=== PATIENT | female | born 1990 | race Caucasian/White ===

== ENCOUNTER 2017-09-12 17:50 | Emergency (ER) | END 2017-09-12 21:30 | disposition home or self-care (01) ==

== ENCOUNTER 2018-03-16 04:52 | Inpatient (IN) | payer BC, OTHER ==
[~2018-03-16] VITALS: Ht 170.2 cm; Wt 85.0 kg
[2018-03-16] VITALS (12 sets, daily range): BP systolic 96–108; BP diastolic 58–79; PULSE 48–65; RESP 16–21; Ht 170.2 cm; Wt 85.0 kg
[~2018-03-16 04:52] MED LIST: CYCL10TA7 PO; IBUP-1561 PO
--- NOTE | 2018-03-16 05:10 | ERD ---
ER Documentation Chief Complaint Chief Complaint HPI This is a very pleasant 27-year-old female who was accepted in transfer from an outside hospital for intractable seizure disorder. Patient has history of seizures. Patient is known to the hospitalist for admission. Due to capitation in bed limitations on the floor, patient came to the ER ROS All systems reviewed and are negative except as per history of present illness. Medications Home Meds Active Scripts Cyclobenzaprine Hcl* (Cyclobenzaprine Hcl*) 10 Mg Tablet, 10 MG PO TID, #30 TAB Prov:ASHOK KU PA-C 09/12/17 Ibuprofen* (Motrin*) 400 Mg Tab, 400 MG PO Q6H PRN for PAIN AND OR ELEVATED TEMP, #30 TAB Prov:ASHOK KU PA-C 09/12/17 Allergies Allergies: Coded Allergies: No Known Allergy (Unverified , 09/12/17) PMhx/Soc Hx Alcohol Use: No Hx Substance Use: No Hx Tobacco Use: No Physical Exam Physical Exam Const: No acute distress Head: Atraumatic Eyes: Normal Conjunctiva ENT: Normal External Ears, Nose and Mouth. Neck: Full range of motion. No meningismus. Resp: Clear to auscultation bilaterally Cardio: Regular rate and rhythm, no murmurs Abd: Soft, non tender, non distended. Normal bowel sounds Skin: No petechiae or rashes Back: No midline or flank tenderness Ext: No cyanosis, or edema Neur: Awake and alert Psych: Normal Mood and Affect Procedures/MDM Medical decision makin-year-old female transferred for intractable seizure disorder among other things. Patient will be admitted to hospitalist. Hospitalist made aware. Departure Diagnosis: Primary Impression: Seizure disorder Condition: SHELLEY Moore Mar 16, 2018 05:10
[2018-03-16] MEDS ORDERED: NACL 0.9% 3 ML SYG IV SCH (06:30)
[2018-03-16] MEDS ORDERED: LORAZEPAM 2 MG INJ IV PRN (06:30)
[2018-03-16] MEDS ORDERED: CLON-379 PO (07:35)
[2018-03-16] MEDS ORDERED: CLON0.5T14 PO (07:35)
[2018-03-16] MEDS: DEXTROSE 5%-0.45% NACL 1,000 ML IV SCH ×3 (07:51→22:47)
[2018-03-16] MEDS: LEVETIRACETAM IV 750 MG in DEXTROSE 5% 100 ML IVPB SCH ×2 (08:36→22:47)
[2018-03-16] MEDS ORDERED: LORAZEPAM 4 MG/ML VIAL IV PRN (13:20)
[2018-03-16] MEDS ORDERED: DIPHENHYDRAMINE 25 MG CAP PO PRN (15:00)
[2018-03-16] MEDS ORDERED: HYDROCODONE/APAP (5/325) TAB PO PRN (15:00)
[2018-03-16] MEDS ORDERED: LORAZEPAM 2 MG INJ IV ONE (15:00)
--- NOTE | 2018-03-16 15:42 | HP ---
Date/Time of Note Date/Time of Note DATE: 03/16/18 TIME: 14:30 Assessment/Plan VTE Prophylaxis Pharmacological prophylaxis: NA/contraindicated Pharm contraindication: bleeding Lines/Catheters IV [facility]from [facility] Saline Lock Urinary Cath still in place: No Assessment/Plan Assessment/Plan 1. acute to subacute left frontal hematoma 2. Hypertensive emergency secondary to meth use: Resolved 3. Chronic substance [methamphetamine] abuse 4. New onset seizures secondary to #1 Plan: ICU admits, neurosurgical recommendation, will need follow-up CT brain in 24 hours to ensure no increase in size, seizure prophylaxis with Keppra, neurology consultation, supportive care. Keep n.p.o. for now until neurosurgical clearance. Zoster status post counseling on the dangers of substance abuse, will have family welfare social work professor provide resources as well. Care time greater than 1 hour HPI/ROS Admit Date/Time Admit Date/Time Mar 16, 2018 at 04:57 Hx of Present Illness This is a 27-year-old female who has a long history of methamphetamine abuse and has intermittent episodes of sobriety who had a relapse yesterday after 9 months of sobriety. She was rushed to the outside emergency room admission because of seizures. Patient does not fully recall the details surrounding her admission. She however does not have any history of seizures. She has been told in the past that she has had elevated blood pressures due to methamphetamine use. An MRI that was done here however is concerning for acute to subacute left frontal hematoma compatibility secretly of methamphetamine use. She is being admitted to the intensive care unit for further management and neurosurgical review. Blood pressure is improved. . ROS 12 point review if systems was done and pertinent findings are as noted. PMH/Family/Social Past Medical History Medical History: no pertinent history Medications Current Medications Dextrose/Sodium Chloride 1,000 ml @ 75 mls/hr [id number] IV Last administered on 03/16/18at 07:51; Admin Dose 75 MLS/HR; Start 03/16/18 at 06:11 IV Flush (NS 3 ml) 3 ml PER PROTOCOL IV ; Start 03/16/18 at 06:30 Ondansetron HCl (Zofran Inj) 4 mg Q6H PRN IV NAUSEA AND/OR VOMITING; Start 03/16/18 at 06:30 Acetaminophen (Tylenol Tab) 650 mg Q6H PRN PO PAIN LEVEL 1-3 OR FEVER; Start 03/16/18 at 06:30 Levetiracetam 750 mg/Dextrose 107.5 ml @ 430 mls/hr Q12 IVPB Last administered on 03/16/18at 08:36; Admin Dose 430 MLS/HR; Start 03/16/18 at 09:00 Lorazepam (Ativan) 2 mg Q10M PRN IV Seizure Last administered on 03/16/18at 13:21; Admin Dose 2 MG; Start 03/16/18 at 13:20 Coded Allergies: No Known Allergy (Unverified , 03/25/18) Past Surgical History Past Surgical Hx: no surgical history Social History Smoking Status: Current every day smoker Drug Use: other (methamphetamine) Exam/Review of Systems Vital Signs Vitals Vital Signs Date Temp Pulse Resp B/P (MAP) Pulse Ox O2 O2 Flow FiO2 Time Delivery Rate 03/16/18 98.3 54 18 96/58 (71) 96 Room Air 12:27 Exam Constitutional: alert, oriented; No distress Head: normocephalic Eyes: No icteric ENMT: mucosa pink and moist Respiratory: clear to auscultation Cardiovascular: regular rate and rhythm; No murmurs/extra sounds Gastrointestinal: soft, non-tender, bowel sounds Extremities: No edema Neurological: nl mental status, nl speech, nl strength, DTR's symmetric, lethargic; No confused, No focal weakness, No numbness, No unresponsive DILLON JAIME Mar 16, 2018 14:40
[2018-03-16] MEDS ORDERED: LORAZEPAM 4 MG/ML VIAL IV SCH (15:46)
--- NOTE | 2018-03-16 18:50 | NUR ---
pt awake and alert, gave ativan x1 this afternoon and pt has been resting well since around 1400- able to wake pt when needed, pt is calm and alert with mother at bedside, updated pt and mother on POC, pt has seizure precautions and safety measures maintained, pt is waiting for neurologist to see her mother is also aware, pt denies pain at this time and aware of MRI results as well, pt also refused pictures of skin assessment but skin is intact, will cont to monitor
--- NOTE | 2018-03-16 18:59 | NUR ---
pt awake and alert but forgetful at times- pt was trying to get OOB and found pt on the edge of the bed,educated pt about fall risk, called Dr. Kan and notified pt was at the edge of the bed he stated that it was okay pt could be out of the bed with or without brace, pt gauze on back still intact no bleeding, pt has MOTOR ASSEMBLER and educated him about that, hemovac in place as well, bed alarms are on and call light is in reach. Addendum: 03/16/18 at 1943 by JENNI HOPE RN error- wrong note on patient
--- NOTE | 2018-03-16 21:52 | NUR ---
MRI NEW MRI ORDERED BY DR. BELTRAN, PT OFF UNIT FOR PROCEDURE AT 21:50 WITH BALANCE STAFF STAKER NURSE AND TRANSPORT. Addendum: 03/16/18 at 2334 by MACIEJ BEGUM RN PT RETURNED TO UNIT AROUND 22:45 AFTER REFUSING THE LAST HALF OF THE MRI TEST. 23:30 - DR. BELTRAN PAGED AND INFORMED THAT PT REFUSED. HE IS OK TO TRY AGAIN TOMORROW DURING THE DAY TIME. WILL CONTINUE TO MONITOR AND ASSESS.
[2018-03-16] MEDS: CHLORDIAZEPOXIDE 25 MG CAP PO SCH (22:48)
[2018-03-17] VITALS (23 sets, daily range): BP systolic 86–113; BP diastolic 50–90; PULSE 47–88; RESP 13–24
--- NOTE | 2018-03-17 01:47 | NUR ---
DIET DR. HARRINGTON CALLED DUE TO PT'S DESIRE TO EAT DUE TO HER BEING UPSET ABOUT SPENDING THE NIGHT IN ICU. PER DR. HARRINGTON, PT IS OK TO EAT SNACKS TONIGHT BUT MUST BE NPO AGAIN IN THE MORNING. WILL OFFER PT FOOD AND CONTINUE TO MONITOR.
--- NOTE | 2018-03-17 06:23 | NUR ---
EOSS: PATIENT REMAINED STABLE THROUGHOUT SHIFT; VITAL SIGNS CHARTED. NO ACUTE CARDIAC EVENTS NOTED. PT TOLERATING ROOM AIR WITH ADEQUATE OXYGENATION SATURATION >92%. PT REMAINS NPO. PT VOIDED ONCE LAST NIGHT PER TOILET. NO BM LAST NIGHT. SKIN CARE PROVIDED PER PROTOCOL. PT SELF TURNS Q1H. MRI TO BE ATTEMPTED AGAIN TODAY PER DR. BELTRAN. PRN NORCO GIVEN FOR COMPLAINTS OF MOUTH PAIN AND GENERALIZED SORENESS. REASSESSED EFFECTIVE. PT AFEBRILE AND COMFORTABLE, ALL NEEDS MET. SAFETY MEASURES IN PLACE. MOTHER WAS AT BEDSIDE LAST NIGHT AND UPDATED ON PLAN OF CARE. TWO CALLERS (MELY AND CHE) TRIED TO REACH PT VIA TELEPHONE WHILE PT WAS AT MRI. PT WAS GIVEN CALLERS NAMES AND NUMBERS BUT PT FELL BACK ASLEEP. WILL CONTINUE TO MONITOR AND ENDORSE CARE TO DAY SHIFT RN.
[2018-03-17] MEDS: CHLORDIAZEPOXIDE 25 MG CAP PO SCH ×3 (09:46→20:21)
--- NOTE | 2018-03-17 10:00 | NUR ---
SS NOTE: DRUG ABUSE RECEIVED ORDER TO SEE PT FOR METHAMPHETAMINE ABUSE. PT ADMITTED DUE TO SEIZURES. YURY MET WITH PT AT BEDSIDE. PT'S MOTHER AND S/O ALSO IN THE ROOM. YURY REQUESTED FOR VISITORS TO WAIT OUTSIDE DURING THE INTERVIEW. PT ALERT/ORIENTED X4. PT AGITATED AND UNCOOPERATIVE. STATED THAT SHE HATES SOCIAL WORKERS BECAUSE SOCIAL WORKERS HAVE MADE HER LIFE A "HELL". PT REPORTED THAT SHE HATES SOCIAL WORKERS BECAUSE THEY TOOK AWAY HER 2Y/O SON. STATED, "YOU ALL PRETEND THAT YOU'RE ANGELS BUT YOU'RE ALL LIARS". YURY EXPLAINED REASON FOR SW'S VISIT. EXPLAINED THAT HAS REQUESTED FOR YURY TO SPEAK WITH PT RE: HER DRUG USE AND TO PROVIDE RESOURCES. PT REPORTED THAT SHE HAS BEEN USING DRUGS "EVER SINCE I REMEMBER". STATED THAT SHE THINKS SHE WAS 10Y/O WHEN SHE STARTED TO USE DRUGS. REPORTED THAT SHE HAS USED "EVERY KIND OF DRUG". STATED THAT SHE DRINKS AND SMOKES WELL. REPORTED THAT SHE HAS BEEN IN REHAB ONCE AND WILL NEVER RETURN BACK THERE AGAIN. REPORTED THAT SHE WAS AT A HOTEL WITH HER SON WHEN SHE HAD HER SEIZURE. STATED THAT HER SON WAS GIVEN BACK TO HER, BUT SHE HAD USED METH AGAIN AND HAD A SEIZURE. STATED THAT SHE IS ANGRY BECAUSE [facility] HAS AGAIN TAKEN HER SON AWAY DUE TO THIS INCIDENT. REPORTED THAT HER S/O WAS DRIVING HER TO THE HOSPITAL WHEN SHE HAD ANOTHER SEIZURE. HER S/O STOPPED AND "FLAGGED DOWN A COPY WHO CALLED [employer] AND THEY TOOK MY SON". STATED THAT HER SON IS CURRENTLY PLACED WITH HER MOTHER. YURY ATTEMPTED TO EXPLAIN TO PT THAT THE CHILD WAS TAKEN AND PLACED IN A SAFE ENVIRONMENT. PT REFUSED TO LISTEN. YURY DISCUSSED [facility]. PT REFUSED TREATMENT. REFUSED RESOURCES. STATED THAT SHE DOES NOT NEED THEM. STATED THAT SHE IS NOT GONG TO PAY FOR TREATMENT AND IF NEEDED SHE WILL GO TO . YURY INFORMED PT THAT SHE HAS INSURANCE AND THE [facility] MIGHT BE ABLE TO TAKE HER INSURANCE. PT STATED THAT HER INSURANCE WAS BECAUSE SHE WAS GOING TO BE A SURROGATE FOR A COUPLE. STATED THAT SHE HAS TO NOW CALL AND TELL THEM THAT SHE CAN'T DO IT. PT TURNED AROUND AND DID NOT WANT TO CONTINUE WITH THE INTERVIEW. YURY MET WITH PT'S MOTHER, JOCELINE WHO CONFIRMED THAT [facility] HAS PLACED THE CHILD WITH HER. STATED THAT THIS IS THE SECOND TIME THAT THEY HAVE DONE THIS. STATED THAT PT'S VERY CLOSE FRIEND HELPS HER WITH STEEL RULE DIE MAKER APPRENTICE. PT'S MOTHER STATED THAT PT ALSO HAS A SEX ADDICTION AND CANNOT GO TO A CO-ED TREATMENT PROGRAM. STATED THAT SHE HAS BEEN CALLING [facility] WHERE PT CAN GO AFTER D/C IF PT IS WILLING. SW PROVIDED EMOTIONAL SUPPORT. SW WILL CONTINUE TO REMAIN AVAILABLE NEEDED.
[2018-03-17] MEDS: LEVETIRACETAM IV 750 MG in DEXTROSE 5% 100 ML IVPB SCH ×2 (10:06→20:29)
--- NOTE | 2018-03-17 10:33 | PN ---
Date/Time of Note Date/Time of Note DATE: 03/17/18 TIME: 10:17 Assessment/Plan VTE Prophylaxis Risk score (from Ns)>0 risk: 1 SCD applied (from Ns): Yes Pharmacological prophylaxis: NA/contraindicated Pharm contraindication: bleeding Lines/Catheters IV Catheter Type (from [facility] [place]): Peripheral IV Urinary Cath still in place: No Assessment/Plan Result Diagram: 03/17/18 0446 03/17/18 0446 Results 24hrs Laboratory Tests Test 03/17/18 04:46 White Blood Count 5.1 Red Blood Count 3.71 L Hemoglobin 11.1 L Hematocrit 32.9 L Mean Corpuscular Volume 88.7 Mean Corpuscular Hemoglobin 29.9 Mean Corpuscular Hemoglobin Concent 33.7 Red Cell Distribution Width 12.9 Platelet Count 320 Mean Platelet Volume 9.1 Immature Granulocytes % 0.000 L Neutrophils % 39.8 Lymphocytes % 49.1 Monocytes % 8.3 Eosinophils % 2.2 Basophils % 0.6 Nucleated Red Blood Cells % 0.0 Immature Granulocytes # 0.000 Neutrophils # 2.0 Lymphocytes # 2.5 Monocytes # 0.4 Eosinophils # 0.1 Basophils # 0.0 Nucleated Red Blood Cells # 0.0 Sodium Level 137 Potassium Level 3.1 L Chloride Level 105 Carbon Dioxide Level 26 Anion Gap 6 Blood Urea Nitrogen 3 L Creatinine 0.61 Est Glomerular Filtrat Rate mL/min > 60 Glucose Level 95 Hemoglobin A1c 5.0 Calcium Level 8.2 L Total Bilirubin 0.2 Direct Bilirubin 0.00 Indirect Bilirubin 0.2 Aspartate Amino Transf (AST/SGOT) 23 Alanine Aminotransferase (ALT/SGPT) 21 Alkaline Phosphatase 58 Total Protein 5.8 L Albumin 3.1 L Globulin 2.70 Albumin/Globulin Ratio 1.14 Triglycerides Level 91 Cholesterol Level 110 LDL Cholesterol, Calculated 47 HDL Cholesterol 45 Cholesterol/HDL Ratio 2.4 Thyroid Stimulating Hormone (TSH) 0.800 Subjective 24 Hr Interval Summary Free Text/Dictation S: no new complaints O:Constitutional: alert, oriented Head: atraumatic, normocephalic Neck: non-tender, supple Respiratory: clear to auscultation Cardiovascular: regular rate and rhythm Gastrointestinal: S/ NT / ND / +BS Extremities: no edema, good radial pulses assessment and plan: 27 yo F who presented wit 1st time seizures managed as follows: 1. acute to subacute left frontal hematoma 2. Hypertensive emergency secondary to meth use: Resolved 3. Chronic substance [methamphetamine] abuse 4. New onset seizures secondary to #1 Plan: patient needs MRI with IV contrast Await Neurosurgical official review and recommendations will also get neurology review Continue IV keppra for now Substance use cessation re-inforced Remain in ICU for now till definitive care plan Continue ICU supportive care CRITICAL CARE TIME: >35 mins Exam/Review of Systems Vital Signs Vitals Vital Signs Date Temp Pulse Resp B/P (MAP) Pulse Ox O2 O2 Flow FiO2 Time Delivery Rate 03/17/18 49 08:00 03/17/18 15 102/65 100 Room Air 06:00 (77) 03/17/18 97.8 04:00 Intake and Output 03/16/18 03/16/18 03/17/18 1515:00 23:00 07:00 IntakeIntake Total 100 ml 975 ml 632.5 ml BalanceBalance 100 ml 975 ml 632.5 ml Medications Medications Current Medications Dextrose/Sodium Chloride 1,000 ml @ 75 mls/hr [id number] IV Last administered on 03/16/18at 22:47; Admin Dose 75 MLS/HR; Start 03/16/18 at 06:11 IV Flush (NS 3 ml) 3 ml PER PROTOCOL IV ; Start 03/16/18 at 06:30 Ondansetron HCl (Zofran Inj) 4 mg Q6H PRN IV NAUSEA AND/OR VOMITING; Start 03/16/18 at 06:30 Acetaminophen (Tylenol Tab) 650 mg Q6H PRN PO PAIN LEVEL 1-3 OR FEVER; Start 03/16/18 at 06:30 Levetiracetam 750 mg/Dextrose 107.5 ml @ 430 mls/hr Q12 IVPB Last administered on 03/17/18at 10:06; Admin Dose 430 MLS/HR; Start 03/16/18 at 09:00 Lorazepam (Ativan) 2 mg Q10M PRN IV Seizure Last administered on 03/16/18at 13:21; Admin Dose 2 MG; Start 03/16/18 at 13:20 Acetaminophen/ Hydrocodone Bitart ([place] (5/325)) 1 tab Q6H PRN PO MODERATE PAIN LEVEL 4-6 Last administered on 03/16/18at 22:52; Admin Dose 1 TAB; Start 03/16/18 at 15:00 Diphenhydramine HCl (Benadryl) 25 mg Q6H PRN PO ITCHING; Start 03/16/18 at 15:00 Chlordiazepoxide (Librium) 25 mg TID PO Last administered on 03/17/18at 09:46; Admin Dose 25 MG; Start 03/16/18 at 21:00 DILLON JAIME Mar 17, 2018 10:33
--- NOTE | 2018-03-17 12:14 | CONS ---
Date/Time of Note Date/Time of Note DATE: 03/17/18 TIME: 12:03 Assessment/Plan Assessment/Plan Assessment/Plan Ms. 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 The best treatment for this is surgical resection. The patient understands the risks and benefits and elects to proceed. She should continue keppra 750 bid and can transfer to the floor today. We have ordered a repeat MRI with contrast that is compatible with neuronavigtation. Surgery has been schedule for Wednesday. Diagnoses: 1) Left frontal intraparenchymal hemorrhage 2) Cystic brain mass NOS Result Diagram: 03/17/18 0446 03/17/18 0446 Results 24hrs Laboratory Tests Test 03/17/18 04:46 White Blood Count 5.1 Red Blood Count 3.71 L Hemoglobin 11.1 L Hematocrit 32.9 L Mean Corpuscular Volume 88.7 Mean Corpuscular Hemoglobin 29.9 Mean Corpuscular Hemoglobin Concent 33.7 Red Cell Distribution Width 12.9 Platelet Count 320 Mean Platelet Volume 9.1 Immature Granulocytes % 0.000 L Neutrophils % 39.8 Lymphocytes % 49.1 Monocytes % 8.3 Eosinophils % 2.2 Basophils % 0.6 Nucleated Red Blood Cells % 0.0 Immature Granulocytes # 0.000 Neutrophils # 2.0 Lymphocytes # 2.5 Monocytes # 0.4 Eosinophils # 0.1 Basophils # 0.0 Nucleated Red Blood Cells # 0.0 Sodium Level 137 Potassium Level 3.1 L Chloride Level 105 Carbon Dioxide Level 26 Anion Gap 6 Blood Urea Nitrogen 3 L Creatinine 0.61 Est Glomerular Filtrat Rate mL/min > 60 Glucose Level 95 Hemoglobin A1c 5.0 Calcium Level 8.2 L Total Bilirubin 0.2 Direct Bilirubin 0.00 Indirect Bilirubin 0.2 Aspartate Amino Transf (AST/SGOT) 23 Alanine Aminotransferase (ALT/SGPT) 21 Alkaline Phosphatase 58 Total Protein 5.8 L Albumin 3.1 L Globulin 2.70 Albumin/Globulin Ratio 1.14 Triglycerides Level 91 Cholesterol Level 110 LDL Cholesterol, Calculated 47 HDL Cholesterol 45 Cholesterol/HDL Ratio 2.4 Thyroid Stimulating Hormone (TSH) 0.800 Consultation Date/Type/Reason Admit Date/Time Mar 16, 2018 at 04:57 Date of Consultation: Mar 17, 2018 Type of Consult Neurosurgery Reason for Consultation Seizure Requesting Provider: DILLON JAIME of Present Illness Ms. Nair is a 27 year old with a history of methamphetamine use who had 3 seizures on Wednesday night and was brought to the ER, where a cystic left frontal mass was identified She is otherwise healthy and has had no history of seizures. The seizures started in the right arm and progressed to visual symptoms and then generalized. She was started on keppra here. The patient denies headache, weakness, numbness or other neurologic symptoms. She describes anxiety, but request medications by name. Past Medical History Medical History: no pertinent history Medications Current Medications Dextrose/Sodium Chloride 1,000 ml @ 75 mls/hr [id number] IV Last administered on 03/16/18at 22:47; Admin Dose 75 MLS/HR; Start 03/16/18 at 06:11 IV Flush (NS 3 ml) 3 ml PER PROTOCOL IV ; Start 03/16/18 at 06:30 Ondansetron HCl (Zofran Inj) 4 mg Q6H PRN IV NAUSEA AND/OR VOMITING; Start 03/16/18 at 06:30 Acetaminophen (Tylenol Tab) 650 mg Q6H PRN PO PAIN LEVEL 1-3 OR FEVER; Start 03/16/18 at 06:30 Levetiracetam 750 mg/Dextrose 107.5 ml @ 430 mls/hr Q12 IVPB Last administered on 03/17/18at 10:06; Admin Dose 430 MLS/HR; Start 03/16/18 at 09:00 Lorazepam (Ativan) 2 mg Q10M PRN IV Seizure Last administered on 03/16/18at 13:21; Admin Dose 2 MG; Start 03/16/18 at 13:20 Acetaminophen/ Hydrocodone Bitart ([place] (5/325)) 1 tab Q6H PRN PO MODERATE PAIN LEVEL 4-6 Last administered on 03/16/18at 22:52; Admin Dose 1 TAB; Start 03/16/18 at 15:00 Diphenhydramine HCl (Benadryl) 25 mg Q6H PRN PO ITCHING; Start 03/16/18 at 15:00 Chlordiazepoxide (Librium) 25 mg TID PO Last administered on 03/17/18at 09:46; Admin Dose 25 MG; Start 03/16/18 at 21:00 Allergies: Coded Allergies: No Known Allergy (Unverified , 09/12/17) Social History Smoking Status: Current every day smoker Drug Use: other (methamphetamine) Exam/Review of Systems Vital Signs Vitals Vital Signs Date Temp Pulse Resp B/P (MAP) Pulse Ox O2 O2 Flow FiO2 Time Delivery Rate 03/17/18 69 17 103/53 100 Room Air 10:00 (70) 03/17/18 98.0 08:00 Intake and Output 03/16/18 03/16/18 03/17/18 1515:00 23:00 07:00 IntakeIntake Total 100 ml 975 ml 707.5 ml OutputOutput Total 0 ml BalanceBalance 100 ml 975 ml 707.5 ml Exam The patient is alert and oriented x3 Cranial nerves are grossly intact Full strength No numbness Medications Medications Current Medications Dextrose/Sodium Chloride 1,000 ml @ 75 mls/hr [id number] IV Last administered on 03/16/18at 22:47; Admin Dose 75 MLS/HR; Start 03/16/18 at 06:11 IV Flush (NS 3 ml) 3 ml PER PROTOCOL IV ; Start 03/16/18 at 06:30 Ondansetron HCl (Zofran Inj) 4 mg Q6H PRN IV NAUSEA AND/OR VOMITING; Start 03/16/18 at 06:30 Acetaminophen (Tylenol Tab) 650 mg Q6H PRN PO PAIN LEVEL 1-3 OR FEVER; Start 03/16/18 at 06:30 Levetiracetam 750 mg/Dextrose 107.5 ml @ 430 mls/hr Q12 IVPB Last administered on 03/17/18at 10:06; Admin Dose 430 MLS/HR; Start 03/16/18 at 09:00 Lorazepam (Ativan) 2 mg Q10M PRN IV Seizure Last administered on 03/16/18at 13:21; Admin Dose 2 MG; Start 03/16/18 at 13:20 Acetaminophen/ Hydrocodone Bitart ([place] (5/325)) 1 tab Q6H PRN PO MODERATE [place] N LEVEL 4-6 Last administered on 03/16/18at 22:52; Admin Dose 1 TAB; Start 03/16/18 at 15:00 Diphenhydramine HCl (Benadryl) 25 mg Q6H PRN PO ITCHING; Start 03/16/18 at 15:00 Chlordiazepoxide (Librium) 25 mg TID PO Last administered on 03/17/18at 09:46; Admin Dose 25 MG; Start 03/16/18 at 21:00 Imaging Imaging There is a 2.5cm mass in the left superior frontal gyrus. This mass has hemorrhagic and cystic components as well as a central core that appears hemorrhagic. DDx includes cavernous malformation vs. tumor. ANTWON HUERTA MD Mar 17, 2018 12:14
[2018-03-17] MEDS: DEXTROSE 5%-0.45% NACL 1,000 ML IV SCH (13:41)
--- NOTE | 2018-03-17 13:49 | CONS ---
Assessment/Plan Assessment/Plan Hospital Course A: 27 yo F with hx of methamphetamine abuse who p/w seizures...for which neurology is consulted. MRI brain is most notable for a frontal hemorrhagic lesion... which is the presumed underlying seizure precipitant. P: Await MRI brain with contrast for further characterization Add MRA Head Cont Keppra as scheduled for now Ativan IV PRN seizure > 5min or for cluster Maintain SBP <160 Avoid antiplatelets/anticoagulants Limit sedating medications where possible Other medical management per primary Will follow clinically Result Diagram: 03/17/18 0446 03/17/18 0446 Results 24hrs Laboratory Tests Test 03/17/18 04:46 White Blood Count 5.1 Red Blood Count 3.71 L Hemoglobin 11.1 L Hematocrit 32.9 L Mean Corpuscular Volume 88.7 Mean Corpuscular Hemoglobin 29.9 Mean Corpuscular Hemoglobin Concent 33.7 Red Cell Distribution Width 12.9 Platelet Count 320 Mean Platelet Volume 9.1 Immature Granulocytes % 0.000 L Neutrophils % 39.8 Lymphocytes % 49.1 Monocytes % 8.3 Eosinophils % 2.2 Basophils % 0.6 Nucleated Red Blood Cells % 0.0 Immature Granulocytes # 0.000 Neutrophils # 2.0 Lymphocytes # 2.5 Monocytes # 0.4 Eosinophils # 0.1 Basophils # 0.0 Nucleated Red Blood Cells # 0.0 Sodium Level 137 Potassium Level 3.1 L Chloride Level 105 Carbon Dioxide Level 26 Anion Gap 6 Blood Urea Nitrogen 3 L Creatinine 0.61 Est Glomerular Filtrat Rate mL/min > 60 Glucose Level 95 Hemoglobin A1c 5.0 Calcium Level 8.2 L Total Bilirubin 0.2 Direct Bilirubin 0.00 Indirect Bilirubin 0.2 Aspartate Amino Transf (AST/SGOT) 23 Alanine Aminotransferase (ALT/SGPT) 21 Alkaline Phosphatase 58 Total Protein 5.8 L Albumin 3.1 L Globulin 2.70 Albumin/Globulin Ratio 1.14 Triglycerides Level 91 Cholesterol Level 110 LDL Cholesterol, Calculated 47 HDL Cholesterol 45 Cholesterol/HDL Ratio 2.4 Thyroid Stimulating Hormone (TSH) 0.800 Consultation Date/Type/Reason Admit Date/Time Mar 16, 2018 at 04:57 Type of Consult Neurology Reason for Consultation seizures Requesting Provider: DILLON JAIME Date/Time of Note DATE: 03/17/18 TIME: 13:46 Hx of Present Illness This is a 27 yo F with hx of methamphetamine abuse who presented to the ED after having a witnessed seizure. History was obtained from chart review as pt is a limited historian at this time. The pt has c/o mild weakness, lethargy, and a sore tongue. Denies headache, d izziness, lightheadedness, confusion, vision or speech changes. It is elsewhere noted: Hx of Present Illness This is a 27-year-old female who has a long history of methamphetamine abuse and has intermittent episodes of sobriety who had a relapse yesterday after 9 months of sobriety. She was rushed to the outside emergency room admission because of seizures. Patient does not fully recall the details surrounding her admission. She however does not have any history of seizures. She has been told in the past that she has had elevated blood pressures due to methamphetamine use. An MRI that was done here however is concerning for acute to subacute left frontal hematoma compatibility secretly of methamphetamine use. She is being admitted to the intensive care unit for further management and neurosurgical review. Blood pressure is improved. . negative unless noted otherwise in HPI Exam/Review of Systems Vital Signs Vitals Vital Signs Date Temp Pulse Resp B/P (MAP) Pulse Ox O2 O2 Flow FiO2 Time Delivery Rate 03/17/18 66 12:00 03/17/18 17 103/53 100 Room Air 10:00 (70) 03/17/18 98.0 08:00 Intake and Output 03/16/18 03/16/18 03/17/18 1515:00 23:00 07:00 IntakeIntake Total 100 ml 975 ml 707.5 ml OutputOutput Total 0 ml BalanceBalance 100 ml 975 ml 707.5 ml Exam PE: Gen Appearance: Withdrawn but cooperative. No Apparent Distress HEENT: Normocephalic Cardiovascular: Regular rate Abdomen: Soft Extremities: Dry NE: The patient was asleep though easily arousable to voice. Fully oriented. Langua ge was normal. Fund of knowledge was normal. Pupils were equal and reactive to light. There was no afferent pupillary defect. Visual blank were normal. Funduscopic examination was limited. Extra-ocular movements were full. Ptosis was absent. There was no nystagmus. Facial sensation was normal. Face was symmetric with normal strength. Hearing was intact. Palate movements were normal. Neck strength was normal. There was normal tongue bulk and speed of movement. Tone was normal. Muscle bulk was normal. I did not see fasciculations. Arms and legs were strong to confrontation. No arm or leg drift noted. Vibration sensation was normal. Temperature and pinprick sensation was normal. Rapid alternating movements were normal. There was no dysmetria. There was no intention tremor. Gait was deferred due to bedrest. Arm and leg reflexes were 2+ and symmetric. Trivedi's sign was absent. Plantar responses were flexor. Medications Medications Current Medications Dextrose/Sodium Chloride 1,000 ml @ 75 mls/hr [id number] IV Last administered on 03/17/18 13:41; Admin Dose 75 MLS/HR; Start 03/16/18 at 06:11 IV Flush (NS 3 ml) 3 ml PER PROTOCOL IV ; Start 03/16/18 at 06:30 Ondansetron HCl (Zofran Inj) 4 mg Q6H PRN IV NAUSEA AND/OR VOMITING; Start 03/16/18 at 06:30 Acetaminophen (Tylenol Tab) 650 mg Q6H PRN PO PAIN LEVEL 1-3 OR FEVER; Start 03/16/18 at 06:30 Levetiracetam 750 mg/Dextrose 107.5 ml @ 430 mls/hr Q12 IVPB Last administered on 03/17/18at 10:06; Admin Dose 430 MLS/HR; Start 03/16/18 at 09:00 Lorazepam (Ativan) 2 mg Q10M PRN IV Seizure Last administered on 03/16/18 13:21; Admin Dose 2 MG; Start 03/16/18 at 13:20 Acetaminophen/ Hydrocodone Bitart ([place] (5/325)) 1 tab Q6H PRN PO MODERATE PAIN LEVEL 4-6 Last administered on 03/16/18at 22:52; Admin Dose 1 TAB; Start 03/16/18 at 15:00 Diphenhydramine HCl (Benadryl) 25 mg Q6H PRN PO ITCHING; Start 03/16/18 at 15:00 Chlordiazepoxide (Librium) 25 mg TID PO Last administered on 03/17/18 13:41; Admin Dose 25 MG; Start 03/16/18 at 21:00 Past Medical History reviewed Medical History: no pertinent history Medications Current Medications Dextrose/Sodium Chloride 1,000 ml @ 75 mls/hr [id number] IV Last administered on 03/17/18at 13:41; Admin Dose 75 MLS/HR; Start 03/16/18 at 06:11 IV Flush (NS 3 ml) 3 ml PER PROTOCOL IV ; Start 03/16/18 at 06:30 Ondansetron HCl (Zofran Inj) 4 mg Q6H PRN IV NAUSEA AND/OR VOMITING; Start 03/16/18 at 06:30 Acetaminophen (Tylenol Tab) 650 mg Q6H PRN PO PAIN LEVEL 1-3 OR FEVER; Start 03/16/18 at 06:30 Levetiracetam 750 mg/Dextrose 107.5 ml @ 430 mls/hr Q12 IVPB Last administered on 03/17/18at 10:06; Admin Dose 430 MLS/HR; Start 03/16/18 at 09:00 Lorazepam (Ativan) 2 mg Q10M PRN IV Seizure Last administered on 03/16/18at 13:21; Admin Dose 2 MG; Start 03/16/18 at 13:20 Acetaminophen/ Hydrocodone Bitart ([place] (5/325)) 1 tab Q6H PRN PO MODERATE PAIN LEVEL 4-6 Last administered on 03/16/18at 22:52; Admin Dose 1 TAB; Start 03/16/18 at 15:00 Diphenhydramine HCl (Benadryl) 25 mg Q6H PRN PO ITCHING; Start 03/16/18 at 15:00 Chlordiazepoxide (Librium) 25 mg TID PO Last administered on 03/17/18at 13:41; Admin Dose 25 MG; Start 03/16/18 at 21:00 Allergies: Coded Allergies: No Known Allergy (Unverified , 09/12/17) Past Surgical History reviewed Social History reviewed Smoking Status: Current every day smoker Drug Use: other (methamphetamine) GABBY WILDER NP Mar 17, 2018 13:49 FIONA LANDIS Mar 18, 2018 06:06
--- NOTE | 2018-03-17 18:38 | NUR ---
EOSS BP stable, SR-SB, taking p.o. diet well, u.o. adequate, ambulates to toilet, gait steady, no episode of seizure, tolerated MRI/MRA, Dr Murphy spoke with patient and pt's mother re: planned surgery, patient signed consent.
[2018-03-17] MEDS: ACETAMINOPHEN 325 MG TAB PO PRN (20:21)
--- NOTE | 2018-03-17 23:20 | NUR ---
Hand-off report received from DI[facility] BLENDER Tej, clarified if MD aware of patient's latest K+ result from this am and if there are any orders for repletion. IC RN to coordinate with Hospitalist prior to transfer to Med-Surg unit.
[2018-03-17] MEDS ORDERED: POTASSIUM CHLORIDE 50 ML IVPB ONE (23:30)
--- NOTE | 2018-03-17 23:55 | NUR ---
Patient arrived in 4W from ICU via wheelchair with diagnosis of seizures. Oriented to room/unit, call mckinnon paced within reach and side rails x2 raised for safety. Bed alarm ensured to be ON. RN discussed intervention of placing padded side rails-refused by patient but consented to have 2 pillow placed on each side of her bed. Also refused skin assessment on bony prominences such as sacrococcyx and B/L heels and verbalized understanding of RN explanation for measures taken to maintain skin integrity, prevention of skin breakdown and pressure sores and prevention of injury/seizures. Verbalized she does not have any pressure ulcers and that her last seizure episode was because she was high on methamphetamine use before she got admitted in the hospital. trumpet teacher made aware. Needs assisted, will continue to monitor overnight.
[2018-03-18] VITALS: BP 102/60; PULSE 55; RESP 20
[2018-03-18] MEDS ORDERED: POTASSIUM CHLORIDE 50 ML IVPB ONE ×2 (00:30→01:30)
--- NOTE | 2018-03-18 05:49 | NUR ---
RN EOSS NOTES: Patient mostly asleep this shift-easily awakened for toileting needs. No seizure events noted. Dr. Ni notified patient only tolerated 1 bag infusion of Potassium 10meQ IV and barely tolerated 2nd bag and has refused any further K+ IV infusion due to "burning" side effects. RN also clarified if he wants to order any K+ PO supplements and order am labs as well including BMP. Dr Ni with telephone ([facility]) order made for K-dur 40meQ PO x 1 dose now. No further orders. Will ask incoming day RN to ff-up once more with day Hospitalist for clarification if am labs can be ordered to include patient's latest K+ level today. Needs assisted.
[2018-03-18] MEDS ORDERED: POTASSIUM CHLORIDE (SR) 10 MEQ TAB PO ONE (06:00)
--- NOTE | 2018-03-18 06:56 | PN ---
Date/Time of Note Date/Time of Note DATE: 03/18/18 TIME: 06:54 Assessment/Plan VTE Prophylaxis Risk score (from Nsg)>0 risk: 0 SCD applied (from Ns): Yes Pharmacological prophylaxis: NA/contraindicated Pharm contraindication: bleeding Lines/Catheters IV Catheter Type (from Nrsg): Saline Lock Urinary Cath still in place: No Assessment/Plan Result Diagram: 03/17/18 0446 03/17/186 Subjective 24 Hr Interval Summary Free Text/Dictation S: no new complaints O:Constitutional: alert, oriented Head: atraumatic, normocephalic Neck: non-tender, supple Respiratory: clear to auscultation Cardiovascular: regular rate and rhythm Gastrointestinal: S/ NT / ND / +BS Extremities: no edema, good radial pulses assessment and plan: 27 yo F who presented wit 1st time seizures managed as follows: 1. acute to subacute left frontal hematoma 2. Hypertensive emergency secondary to meth use: Resolved 3. Chronic substance [methamphetamine] abuse 4. New onset seizures secondary to #1 Plan: Continue IV keppra , neurology consult obtained, f/u recs Continue seizure precautions MRI w contrast and MRA findings noted, await Neurosurgical final recs. Sx tentatively scheduled for Wednesday Substance use cessation re-inforced Further interventions per clinical course Exam/Review of Systems Vital Signs Vitals Vital Signs Date Temp Pulse Resp B/P (MAP) Pulse Ox O2 O2 Flow FiO2 Time Delivery Rate 03/18/18 98.5 55 20 102/60 98 Room Air 00:00 (74) Intake and Output 03/17/18 03/17/18 03/18/18 1515:00 23:00 07:00 IntakeIntake Total 1512.5 ml 867.5 ml 480 ml OutputOutput Total 1300 ml 300 ml BalanceBalance 212.5 ml 567.5 ml 480 ml Medications Medications Current Medications IV Flush (NS 3 ml) 3 ml PER PROTOCOL IV ; Start 03/16/18 at 06:30 Ondansetron HCl (Zofran Inj) 4 mg Q6H PRN IV NAUSEA AND/OR VOMITING; Start 03/16/18 at 06:30 Acetaminophen (Tylenol Tab) 650 mg Q6H PRN PO PAIN LEVEL 1-3 OR FEVER Last administered on 03/17/18at 20:21; Admin Dose 650 MG; Start 03/16/18 at 06:30 Levetiracetam 750 mg/Dextrose 107.5 ml @ 430 mls/hr Q12 IVPB Last administered on 03/17/18at 20:29; Admin Dose 430 MLS/HR; Start 03/16/18 at 09:00 Lorazepam (Ativan) 2 mg Q10M PRN IV Seizure Last administered on 03/16/18at 13:21; Admin Dose 2 MG; Start 03/16/18 at 13:20 Diphenhydramine HCl (Benadryl) 25 mg Q6H PRN PO ITCHING; Start 03/16/18 at 15:00 Chlordiazepoxide (Librium) 25 mg TID PO Last administered on 03/17/18at 20:21; Admin Dose 25 MG; Start 03/16/18 at 21:00 DILLON JAIME Mar 18, 2018 06:56
[2018-03-18 08:42] VITALS: BP 109/68; PULSE 52; RESP 18
[2018-03-18] MEDS: CHLORDIAZEPOXIDE 25 MG CAP PO SCH ×3 (09:42→21:28)
[2018-03-18] MEDS: LEVETIRACETAM IV 750 MG in DEXTROSE 5% 100 ML IVPB SCH ×2 (09:42→21:26)
--- NOTE | 2018-03-18 16:00 | NUR ---
[employer] CONSULTANT CAME TO THE FLOOR AND MADE AWARE THAT PATIENT AND ALSO PATIENT'S MOM WANTS TO TALK TO HIM IF HE CAN GIVE A CALL TO THE MOM BUT HE SAID THAT HE WILL ENDORSE TO HIS COLLEAG[employer] FOR TOMORROW CAUSE HE IS REALLY VERY BUSY .
--- NOTE | 2018-03-18 16:06 | CONS ---
Assessment/Plan Assessment/Plan Hospital Course A: 27 yo F with hx of methamphetamine abuse who p/w seizures...for which neurology is consulted. MRI brain is most notable for a frontal hemorrhagic lesion... which is the presumed underlying seizure precipitant. Repeat MRI w/ contrast is stable. MRA H/N is unrevealing.. P: Cont Keppra as scheduled for now Ativan IV PRN seizure > 5min or for cluster Maintain SBP <160 Avoid antiplatelets/anticoagulants Limit sedating medications where possible Other medical management per primary Will follow clinically Result Diagram: 03/17/18 0446 03/17/18 0446 Consultation Date/Type/Reason Admit Date/Time Mar 16, 2018 at 04:57 Type of Consult Neurology Reason for Consultation seizures Requesting Provider: DILLON JAIME Date/Time of Note DATE: 03/18/18 TIME: 16:05 24 HR Interval Summary Free Text/Dictation Continues medsurg monitoring. No acute events or pt complaints reported at this time. Exam Vital Signs Vitals Vital Signs Date Temp Pulse Resp B/P (MAP) Pulse Ox O2 O2 Flow FiO2 Time Delivery Rate 03/18/18 97.5 52 18 109/68 96 08:42 (82) 03/18/18 Room Air 00:00 Intake and Output 03/17/18 03/17/18 03/18/18 1515:00 23:00 07:00 IntakeIntake Total 1512.5 ml 867.5 ml 480 ml OutputOutput Total 1300 ml 300 ml BalanceBalance 212.5 ml 567.5 ml 480 ml Exam PE: Gen Appearance: Withdrawn but cooperative. No Apparent Distress HEENT: Normocephalic Cardiovascular: Regular rate Abdomen: Soft Extremities: Dry NE: The patient was asleep though easily arousable to voice. Fully oriented. Language was normal. Fund of knowledge was normal. Pupils were equal and reactive to light. There was no afferent pupillary defect. Visual blank were normal. Funduscopic examination was limited. Extra-ocular movements were full. Ptosis was absent. There was no nystagmus. Facial sensation was normal. Face was symmetric with normal strength. Hearing was intact. Palate movements were normal. Neck strength was normal. There was normal tongue bulk and speed of movement. Tone was normal. Muscle bulk was normal. I did not see fasciculations. Arms and legs were strong to confrontation. No arm or leg drift noted. Vibration sensation was normal. Temperature and pinprick sensation was normal. Rapid alternating movements were normal. There was no dysmetria. There was no intention tremor. Gait was deferred due to bedrest. Arm and leg reflexes were 2+ and symmetric. Trivedi's sign was absent. Plantar responses were flexor. GABBY WILDER NP Mar 18, 2018 16:06 FIONA LANDIS Mar 19, 2018 07:52
--- NOTE | 2018-03-18 17:31 | NUR ---
pATIENT WANTS HER TO RESUME HER KLONOPIN 0.5 MG BID, MESSAGED DR JAIME THRU [employer], WAITING FOR HER RESPONSE
--- NOTE | 2018-03-18 18:30 | NUR ---
EOSS: Patient with no seizure activity noted during the shift, on IV keppra but patient cc/o pain on IV site eventhough it was just changed, with good blood return and wanted to decrease the rate, ran for an hour this morning. Slept most of the time. farmworker field crop to see patient tomorrow as communicated by Silvino case management social worker. Vitals stable. Messaged left to Dr Wisdom for klonopin cause patient wants to resume.
[2018-03-18 20:03] VITALS: BP 133/71; PULSE 88; RESP 20
[2018-03-18] MEDS ORDERED: clonAZEPAM 0.5 MG TAB PO ONE (21:00)
--- NOTE | 2018-03-18 21:23 | NUR ---
Patient has initially refused for her bed alarm (shelter monitor and nursing puttying and calking supervisor made aware) to be turned on, but eventually consented to comply with safety precautions discussed and implemented by RN. Reiterated side effects of her medications including drug interactions which heightens her fall risk. Continues to refuse padded side rails but agreed to have pillows placed on the sides of her bed, seizure precautions enforced as well.
[2018-03-19 02:14] VITALS: BP 102/52; PULSE 52; RESP 18
[2018-03-19 08:55] VITALS: BP 123/81; PULSE 76; RESP 18
[2018-03-19] MEDS: CHLORDIAZEPOXIDE 25 MG CAP PO SCH ×2 (08:57→12:59)
[2018-03-19] MEDS: LEVETIRACETAM IV 750 MG in DEXTROSE 5% 100 ML IVPB SCH ×2 (09:24→20:47)
--- NOTE | 2018-03-19 09:54 | PN ---
Date/Time of Note Date/Time of Note DATE: 03/19/18 TIME: 09:41 Assessment/Plan VTE Prophylaxis Risk score (from Ns)>0 risk: 0 SCD applied (from Ns): Yes SCD contraindicated: low risk/ambulating Pharmacological prophylaxis: heparin Lines/Catheters IV Catheter Type (from Nrs): Peripheral IV Urinary Cath still in place: No Assessment/Plan Problems: (1) Intraparenchymal hemorrhage of brain Status: Acute Comment: She is scheduled for neurosurgery in the next 48 hours. At this time she is medically stable to proceed forward. (2) Seizure disorder Status: Acute Comment: On Keppra at this time (3) Acute hypokalemia Status: Resolved Comment: Resolved (4) Tobacco abuse Status: Chronic Comment: Not smoking while here in the hospital (5) Methamphetamine abuse Status: Chronic Comment: She has poor insight into the situation and choices she is made. I suspect an underlying personality disorder such as borderline personality is a possibility Result Diagram: 03/19/18 0429 03/19/18 0429 Results 24hrs Laboratory Tests Test 03/19/18 04:29 White Blood Count 6.0 Red Blood Count 4.14 L Hemoglobin 12.4 Hematocrit 36.9 L Mean Corpuscular Volume 89.1 Mean Corpuscular Hemoglobin 30.0 Mean Corpuscular Hemoglobin Concent 33.6 Red Cell Distribution Width 12.7 Platelet Count 339 Mean Platelet Volume 9.1 Immature Granulocytes % 0.300 Neutrophils % 38.9 L Lymphocytes % 49.8 Monocytes % 8.0 Eosinophils % 2.5 Basophils % 0.5 Nucleated Red Blood Cells % 0.0 Immature Granulocytes # 0.020 Neutrophils # 2.3 Lymphocytes # 3.0 H Monocytes # 0.5 Eosinophils # 0.2 Basophils # 0.0 Nucleated Red Blood Cells # 0.0 Prothrombin Time 12.4 Prothrombin Time Ratio 1.0 INR International Normalized Ratio 0.91 Activated Partial Thromboplast Time 26.4 Sodium Level 139 Potassium Level 3.7 Chloride Level 102 Carbon Dioxide Level 31 Anion Gap 6 Blood Urea Nitrogen 12 # Creatinine 0.72 Est Glomerular Filtrat Rate mL/min > 60 Glucose Level 94 Calcium Level 8.7 Subjective 24 Hr Interval Summary Free Text/Dictation Patient reports no symptoms at this time. Constitutional: no complaints ENT: no complaints Respiratory: no complaints Cardiovascular: no complaints Gastrointestinal: no complaints Genitourinary: no complaints Exam/Review of Systems Vital Signs Vitals Vital Signs Date Temp Pulse Resp B/P (MAP) Pulse Ox O2 O2 Flow FiO2 Time Delivery Rate 03/19/18 98.0 76 18 123/81 100 Room Air 08:55 (95) Intake and Output 03/18/18 03/18/18 03/19/18 1515:00 23:00 07:00 IntakeIntake Total 507.5 ml 587.5 ml 920 ml BalanceBalance 507.5 ml 587.5 ml 920 ml Exam Constitutional: alert, oriented Psych: other (Patient states that she has no fear whatsoever about going in for surgery on the brain on Wednesday) Neck: supple, non-tender Respiratory: clear to auscultation, normal air movement Neurological: other (Affect does not match situation) Medications Medications Current Medications IV Flush (NS 3 ml) 3 ml PER PROTOCOL IV ; Start 03/16/18 at 06:30 Ondansetron HCl (Zofran Inj) 4 mg Q6H PRN IV NAUSEA AND/OR VOMITING; Start 03/16/18 at 06:30 Acetaminophen (Tylenol Tab) 650 mg Q6H PRN PO PAIN LEVEL 1-3 OR FEVER Last administered on 03/17/18at 20:21; Admin Dose 650 MG; Start 03/16/18 at 06:30 Levetiracetam 750 mg/Dextrose 107.5 ml @ 430 mls/hr Q12 IVPB Last administered on 03/19/18at 09:24; Admin Dose 430 MLS/HR; Start 03/16/18 at 09:00 Diphenhydramine HCl (Benadryl) 25 mg Q6H PRN PO ITCHING; Start 03/16/18 at 15:00 Chlordiazepoxide (Librium) 25 mg TID PO Last administered on 03/19/18at 08:57; Admin Dose 25 MG; Start 03/16/18 at 21:00; Stop 03/19/18 at 20:59 Lorazepam (Ativan) 2 mg Q2H PRN IV Seizure; Start 03/18/18 at 07:00 ELOY NGUYEN MD Mar 19, 2018 09:51
[2018-03-19] MEDS: ACETAMINOPHEN 325 MG TAB PO PRN (11:11)
--- NOTE | 2018-03-19 15:27 | NUR ---
YURY Note: Referral received stating patient/mother requested to f/u with YURY regarding child custody of patient. Met with patient at bedside. Pt verbalized that she did not request to speak with SW, but her mother may have. Patient gave verbal consent for this com writer to reach her mother via phone as she was not at bedside ([phone]). Spoke with patients mother via phone as she was not at bedside. Mother states that she has custody of patients son and that they have a court hearing on Wednesday. The court is also requesting that the patient present at the court hearing. However, per mother the patient is schedule to have surgery at [facility] on Wednesday and will not be able to attend Tuesdays court hearing. Family asking that a letter to the court be written from the hospital explaining patients absence. YURY informed patients mother , that due to hospital policy SW is unable to draft the letter. This com writer will speak with the medical staff regarding patient/family request. Spoke with bedside RN, RN to inform MD of patient/family request for letter.
--- NOTE | 2018-03-19 18:16 | NUR ---
EOSS: Patient with no episode of seizure during the shift, vitals stable, no c/o pain. With episodes of refusing bed alarm, though risk and benefits explained to patient but non compliant, stated" I don't need it" On IV keppra as ordered. Kept comfortable. Instructed to call for help if needed. Needs attended.
[2018-03-19 19:52] VITALS: BP 122/60; PULSE 65; RESP 20
[2018-03-19] MEDS ORDERED: clonAZEPAM 0.5 MG TAB PO ONE (22:40)
[2018-03-20 03:07] VITALS: BP 125/72; PULSE 66; RESP 20
--- NOTE | 2018-03-20 05:47 | NUR ---
RN EOSS NOTES: Patient visited by her family and significant other last night but mostly slept throughout shift after they have left. Provided with requested snacks last night and hourly rounding enforced to assist with needs and ensure safety. Compliant with nursing staff intervention in activation of bed alarm and calls for staff assistance for OOB activities. No fall nor seizure episodes noted this shift. No acute changes in LOC and v/S have been stable overnight. Anticipating surgery on Wednesday. Will continue to monitor and assist with needs.
[2018-03-20 07:43] VITALS: BP 102/66; PULSE 71; RESP 17
--- NOTE | 2018-03-20 08:15 | NUR ---
SWer submitted a letter to the DMV regarding pt's recent seizure requesting an evauation to determine if her driving privilege should be suspended/revoked as she might not be safe to operate a vehicle. CM aware, SWer to remain available for f/u and assistance as needed.
--- NOTE | 2018-03-20 08:30 | CONS ---
Assessment/Plan Assessment/Plan Hospital Course A: 27 yo F with hx of methamphetamine abuse who p/w seizures...for which neurology is consulted. MRI brain was most notable for a frontal hemorrhagic lesion... which is the presumed underlying seizure focus Repeat MRI w/ contrast was stable from prior. MRA H/N was unrevealing.. Planned for excisional Bx on 03/21.. P: Await neurosurgical Bx.. Cont Keppra as scheduled for now Ativan IV PRN seizure > 5min or for cluster Maintain SBP <160 Avoid antiplatelets/anticoagulants in the short term Limit sedating medications where possible Other medical management per primary Will follow clinically Result Diagram: 03/19/18 0429 03/19/18 0429 Results 24hrs Laboratory Tests Test 03/19/18 11:37 Rapid Plasma Reagin NONREACTIVE Hepatitis B Surface Antigen NEGATIVE Hepatitis C Antibody NEGATIVE Consultation Date/Type/Reason Admit Date/Time Mar 16, 2018 at 04:57 Type of Consult Neurology Reason for Consultation seizure Requesting Provider: DILLON JAIME Date/Time of Note DATE: 03/20/18 TIME: 08:29 Exam Vital Signs Vitals Vital Signs Date Temp Pulse Resp B/P (MAP) Pulse Ox O2 O2 Flow FiO2 Time Delivery Rate 03/20/18 98.0 71 17 102/66 100 Room Air 07:43 (78) Intake and Output 03/19/18 03/19/18 03/20/18 1515:00 23:00 07:00 IntakeIntake Total 307.5 ml 1227.5 ml 740 ml BalanceBalance 307.5 ml 1227.5 ml 740 ml Exam PE: Gen Appearance: No Apparent Distress HEENT: Normocephalic Cardiovascular: Regular rate Lungs: Clear bilaterally Abdomen: Soft Extremities: Dry NE: The patient was alert and oriented, able to spell WORLD backwards, and able to recall all three words after a five minute delay. Language was normal. Fund of knowledge was normal. Pupils were equal and reactive to light. There was no afferent pupillary defect. Visual blank were normal. Funduscopic examination showed sharp disc margins and spontaneous venous pulsations. Extra-ocular movements were full. Ptosis was absent. There was no nystagmus. Facial sensation was normal. Face was symmetric with normal strength. Hearing was intact. Palate movements were normal. Neck strength was normal. There was normal tongue bulk and speed of movement. Tone was normal. Muscle bulk was normal. I did not see fasciculations. Arms and legs were strong. Vibration sensation was normal. Temperature and pinprick sensation was normal. Rapid alternating movements were normal. There was no dysmetria. There was no intention tremor. Gait was normat. Arm and leg reflexes were 2+ and symmetric. Trivedi's sign was absent. Plantar responses were flexor. FIONA LANDIS Mar 20, 2018 08:30
[2018-03-20] MEDS: LEVETIRACETAM IV 750 MG in DEXTROSE 5% 100 ML IVPB SCH ×2 (09:45→20:39)
--- NOTE | 2018-03-20 10:59 | PN ---
Date/Time of Note Date/Time of Note DATE: 03/20/18 TIME: 10:55 Assessment/Plan VTE Prophylaxis Risk score (from Ns)>0 risk: 0 SCD applied (from Nsg): Yes Pharmacological prophylaxis: NA/contraindicated Pharm contraindication: low risk/ambulating Lines/Catheters IV Catheter Type (from Nrsg): Saline Lock Urinary Cath still in place: No Assessment/Plan Assessment/Plan HD4 seizures with left frontal hemorrhagic mass. For surgery tomorrow. Discussed risks and benefits of surgery and she understands and elects to proceed. - NPO after midnight - type and screen Result Diagram: 03/19/1842803/19/18428 Results 24hrs Laboratory Tests Test 03/19/18 11:37 Rapid Plasma Reagin NONREACTIVE Hepatitis B Surface Antigen NEGATIVE Hepatitis C Antibody NEGATIVE Subjective 24 Hr Interval Summary Free Text/Dictation Patient with L frontal hemorrhagic mass and seizure. No further seizures. On Keppra Exam/Review of Systems Vital Signs Vitals Vital Signs Date Temp Pulse Resp B/P (MAP) Pulse Ox O2 O2 Flow FiO2 Time Delivery Rate 03/20/18 98.0 71 17 102/66 100 Room Air 07:43 (78) Intake and Output 03/19/18 03/19/18 03/20/18 1414:59 22:59 06:59 IntakeIntake Total 307.5 ml 1227.5 ml 740 ml BalanceBalance 307.5 ml 1227.5 ml 740 ml Exam Alert and oriented x3 5/5 no drift Medications Medications Current Medications IV Flush (NS 3 ml) 3 ml PER PROTOCOL IV ; Start 03/16/18 at 06:30 Ondansetron HCl (Zofran Inj) 4 mg Q6H PRN IV NAUSEA AND/OR VOMITING; Start 03/16/18 at 06:30 Acetaminophen (Tylenol Tab) 650 mg Q6H PRN PO PAIN LEVEL 1-3 OR FEVER Last administered on 03/19/18at 11:11; Admin Dose 650 MG; Start 03/16/18 at 06:30 Levetiracetam 750 mg/Dextrose 107.5 ml @ 430 mls/hr Q12 IVPB Last administered on 03/20/18at 09:45; Admin Dose 430 MLS/HR; Start 03/16/18 at 09:00 Diphenhydramine HCl (Benadryl) 25 mg Q6H PRN PO ITCHING; Start 03/16/18 at 15:00 Lorazepam (Ativan) 2 mg Q2H PRN IV Seizure; Start 03/18/18 at 07:00 Imaging Imaging MRI with contrast does not demonstrate any enhancement. 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 ANTWON HUERTA MD Mar 20, 2018 10:59
--- NOTE | 2018-03-20 11:00 | QN ---
Documentation Comment March 20, 2018 To Whom It May Concern Re: Maya Nair date of 1990 Dear Sirs: Ms. Nair is a 27-year-old female who was admitted to [facility] March 16 2018. In the course of her evaluation she has been found to have an indication for a neurosurgical procedure which she will be receiving on the morning of March 21, 2018. Assuming everything goes well as our anticipation she will be able to be discharged from the hospital March 24, 2018 approximately. Please keep the states in mind in case this interferes with any other scheduled appearances or meetings that she is supposed to attend. Respectfully ELOY Pepper MD, MD Mar 20, 2018 11:00
--- NOTE | 2018-03-20 11:04 | PN ---
Date/Time of Note Date/Time of Note DATE: 03/20/18 TIME: 11:01 Assessment/Plan VTE Prophylaxis Risk score (from Ns)>0 risk: 0 SCD applied (from Ns): Yes SCD contraindicated: low risk/ambulating Pharmacological prophylaxis: NA/contraindicated Pharm contraindication: bleeding Lines/Catheters IV [facility]ter [facility]from [facility] Saline Lock Urinary Cath still in place: No Assessment/Plan Problems: (1) Intraparenchymal hemorrhage of brain Status: Acute Comment: For neurosurgical procedure in the morning to the definitively identify what this is an resolve the issue hope fully (2) Seizure disorder Status: Acute Comment: Presently without evidence of seizures while on medication treatment. (3) Acute hypokalemia Status: Resolved Comment: Resolved (4) Methamphetamine abuse Status: Chronic Comment: In the hospital clean and sober. Postoperatively when she is recovered she will need some type of rehab. Please note she is requesting a letter for court as she has a hearing but this will be within the immediate postoperative timeframe from neurosurgery as such we have given her a letter identifying that she will be in our facility (5) Tobacco abuse Status: Chronic Comment: Counseled Result Diagram: 03/19/18 0429 03/19/18 0429 Results 24hrs Laboratory Tests Test 03/19/18 11:37 Rapid Plasma Reagin NONREACTIVE Hepatitis B Surface Antigen NEGATIVE Hepatitis C Antibody NEGATIVE Subjective 24 Hr Interval Summary Free Text/Dictation Patient overall appears in good spirits although she is a little bit nervous Constitutional: no complaints Respiratory: no complaints Cardiovascular: no complaints Gastrointestinal: no complaints Genitourinary: no complaints Exam/Review of Systems Vital Signs Vitals Vital Signs Date Temp Pulse Resp B/P (MAP) Pulse Ox O2 O2 Flow FiO2 Time Delivery Rate 03/20/18 98.0 71 17 102/66 100 Room Air 07:43 (78) Intake and Output 03/19/18 03/19/18 03/20/18 1515:00 23:00 07:00 IntakeIntake Total 307.5 ml 1227.5 ml 740 ml BalanceBalance 307.5 ml 1227.5 ml 740 ml Exam Constitutional: alert, oriented Neck: supple, non-tender Respiratory: clear to auscultation, normal air movement Cardiovascular: regular rate and rhythm, nl pulses Medications Medications Current Medications IV Flush (NS 3 ml) 3 ml PER PROTOCOL IV ; Start 03/16/18 at 06:30 Ondansetron HCl (Zofran Inj) 4 mg Q6H PRN IV NAUSEA AND/OR VOMITING; Start 03/16/18 at 06:30 Acetaminophen (Tylenol Tab) 650 mg Q6H PRN PO PAIN LEVEL 1-3 OR FEVER Last administered on 03/19/18at 11:11; Admin Dose 650 MG; Start 03/16/18 at 06:30 Levetiracetam 750 mg/Dextrose 107.5 ml @ 430 mls/hr Q12 IVPB Last administered on 03/20/18at 09:45; Admin Dose 430 MLS/HR; Start 03/16/18 at 09:00 Diphenhydramine HCl (Benadryl) 25 mg Q6H PRN PO ITCHING; Start 03/16/18 at 15:00 Lorazepam (Ativan) 2 mg Q2H PRN IV Seizure; Start 03/18/18 at 07:00 ELOY NGUYEN MD Mar 20, 2018 11:04
[2018-03-20] MEDS: ACETAMINOPHEN 325 MG TAB PO PRN ×2 (14:01→23:12)
[2018-03-20 14:40] VITALS: BP 163/75; PULSE 91; RESP 15
[2018-03-20 15:30] VITALS: BP 113/61; PULSE 80; RESP 18
--- NOTE | 2018-03-20 18:37 | NUR ---
END OF SHIFT NOTE: I spoke with Addi regarding patient's mother's request for written documentation that patient was in hopsital due to missing court date and to reinstate her Klonopin dose. Addi responded and orders placed. Patient had no seizure activity and patient requesting snacks frequently. Patient aware of pending surgery in the morning and will need to NPO after midnight. Family has stated concern that patient will have friends bring her food through the night and patient may have food in her room. Patient educated on need for npo status and patient aware. Patient aware of urine sample and stated she had forgotten earlier. I placed specimen cup and green sign on door. I told LIBRARY TECHNICIAN to endorse to night LIBRARY TECHNICIAN for collection.
[2018-03-20 19:16] VITALS: BP 103/61; PULSE 75; RESP 16
[2018-03-20] MEDS ORDERED: clonAZEPAM 0.5 MG TAB PO ONE (20:00)
[2018-03-21] VITALS (44 sets, daily range): BP systolic 86–137; BP diastolic 47–82; PULSE 56–120; RESP 12–29
--- NOTE | 2018-03-21 06:09 | NUR ---
PT MAINTAINED NPO STATUS SINCE MIDNO. PT TOOK A SHOWER THIS AM. MEDICATED WITH TYLENOL FOR A STEARNS WITH RELIEF EXPRESSED. VSS AFEBRILE. PT WITH MULTIPLE QUESTIONS ABOUT THE SURGERY, ABOUT TUMORS AND BLOOD CLOTS VERSUS NO SURGERY AND PT INSTRUCTED TO DISCUSS THESE CONCERNS WITH SURGEON. STATES SHE TALKS TO EVERYBODY ABOUT IT SHE IS SCARED. PT ALLOWED TO VENT FEELINGS AND EMOTIONAL SUPPORT PROVIDED. SO AT BEDSIDE. PREOP INTERVENTIONS IN PROGRESS
--- NOTE | 2018-03-21 06:14 | NUR ---
TO BE NOTED PT HAS HAD NO SS SEIZURE ACTIVITY NOTED
--- NOTE | 2018-03-21 06:35 | NUR ---
SHOT BAGGER CALLED FOR REPORT. THIS WAS GIVEN, PT WILL BE PICKED UP WITHIN THE NEXT 30 MINS.
[2018-03-21] MEDS ORDERED: POVIDONE IODINE 10% 28.4 GM OINT ONE (07:00)
[2018-03-21] MEDS ORDERED: THROMBIN 5000 UNIT VIAL ONE (07:00)
[2018-03-21] MEDS ORDERED: DESFLURANE 15 MIN ONE (07:00)
[2018-03-21] MEDS ORDERED: ONDANSETRON 4 MG INJ ONE (07:00)
[2018-03-21] MEDS ORDERED: GELATIN SIZE 100 SPONGE ONE ×2 (07:00→09:44)
[2018-03-21] MEDS ORDERED: LIDOCAINE 1%/EPI (1:100,000) (MDV) 20 ML ONE (07:00)
[2018-03-21] MEDS ORDERED: CEFAZOLIN 1 GM INJ ONE (07:00)
[2018-03-21] MEDS ORDERED: DEXAMETHASONE 4 MG/ML 5 ML INJ ONE (07:00)
[2018-03-21] MEDS ORDERED: BACITRACIN 50000 UNITS INJ ONE ×2 (07:03→09:16)
--- NOTE | 2018-03-21 07:11 | HPN ---
Date/Time of Note Date/Time of Note DATE: 03/21/18 TIME: 07:10 Interval H&P Admission Note Pt. seen H&P reviewed: No system changes ANTWON HUERTA MD Mar 21, 2018 07:11
--- NOTE | 2018-03-21 07:14 | SIPON ---
Date/Time of Note Date/Time of Note DATE: 03/21/18 TIME: 07:13 Operative Report Preoperative Diagnosis Left frontal hemorrhagic mass Postoperative Diagnosis Left frontal cystic hemorrhagic mass Operation/Procedure Performed Left frontal craniotomy for resection of mass Surgeon Dharmesh Huerta behavioral modification assistant none Anesthesia: general Estimated blood loss: 10 - 50 ml's Transfusion Required none Specimen Left frontal hemorrhagic mass to pathology Grafts/Implants none Complications none DHARMESH HUERTA MD Mar 21, 2018 07:14
--- NOTE | 2018-03-21 07:19 | PREAC ---
Date/Time of Note Date/Time of Note DATE: 03/21/18 TIME: 07:17 Anesthesia Eval and Record Evaluation Time Pre-Procedure Interview DATE: 03/21/18 TIME: 07:17 Age 27 Sex female NPO: 8 hrs Preoperative diagnosis L frontal brain mass Planned procedure Craniotomy for L excision of brain mass/turmor Past Medical History Past Medical History: Includes Cardio: HTN Neuro: CVA, Seizure disorder, Other (increased ICP with brain hemorrhage/mass) GI: GERD Psych: Anxiety, Other (stimulant disorder) Recreational drugs: Other (h/o heavy meth use) Surgery & Anesthesia Issues Other issues Meds Anticoagulation: No Beta Nova within 24 hr: No Reason Beta Nova not given: Pt. not on B-Nova Reported Medications Clonazepam* (Clonazepam*) 0.5 Mg Tablet, 0.5 MG PO DAILY PRN for ANXIETY, TAB 03/16/18 Clonidine Hcl* (Clonidine Hcl*) 0.1 Mg Tab, 0.1 MG PO DAILY PRN for ELEVATED BLOOD PRESSURE, TAB 03/16/18 Discontinued Scripts Cyclobenzaprine Hcl* (Cyclobenzaprine Hcl*) 10 Mg Tablet, 10 MG PO TID, #30 TAB Prov:ASHOK KU PA-C 09/12/17 Ibuprofen* (Motrin*) 400 Mg Tab, 400 MG PO Q6H PRN for PAIN AND OR ELEVATED TEMP, #30 TAB Prov:ASHOK KU PA-C 09/12/17 Current Medications IV Flush (NS 3 ml) 3 ml PER PROTOCOL IV ; Start 03/16/18 at 06:30 Ondansetron HCl (Zofran Inj) 4 mg Q6H PRN IV NAUSEA AND/OR VOMITING; Start 03/16/18 at 06:30 Acetaminophen (Tylenol Tab) 650 mg Q6H PRN PO PAIN LEVEL 1-3 OR FEVER Last administered on 03/20/18at 23:12; Admin Dose 650 MG; Start 03/16/18 at 06:30 Levetiracetam 750 mg/Dextrose 107.5 ml @ 430 mls/hr Q12 IVPB Last administered on 03/20/18at 20:39; Admin Dose 430 MLS/HR; Start 03/16/18 at 09:00 Diphenhydramine HCl (Benadryl) 25 mg Q6H PRN PO ITCHING; Start 03/16/18 at 15:00 Lorazepam (Ativan) 2 mg Q2H PRN IV Seizure; Start 03/18/18 at 07:00 Meds reviewed: Yes Allergies Coded Allergies: No Known Allergy (Unverified , 09/12/17) Allergies Reviewed: Yes Labs/Studies Labs Reviewed: Reviewed by anesthesiologist Result Diagram: 03/21/18 0427 03/21/18 0427 Laboratory Tests 03/21/18 04:27 Blood Bank Test 03/20/18 10:45 Antibody Screen NEGATIVE Blood Type B POSITIVE test: Negative Pre-procedure Exam Last vitals Vital Signs Date Temp Pulse Resp B/P (MAP) Pulse Ox O2 O2 Flow FiO2 Time Delivery Rate 03/21/18 98.5 56 16 98/62 (74) 98 Room Air 01:40 Airway: Adequate mouth opening, Adequate thyromental dist Mallampati: Mallampati III Teeth: Normal Lung: Normal Heart: Normal ASA Physical Status ASA physical status: 4 Emergency: None Planned Anesthetic General/MAC: ETT Planned Pain Management Parenteral pain med, Other neuraxial med, Local by surgeon Pre-operative Attestations Prior to commencing anesthesia and surgery, the patient was re-evaluated, there was verification of: *The patient's identity *The results of appropriate recent lab work and preoperative vital signs *The above evaluation not changing prior to induction *Anesthetic plan, risk benefits, alternative and complications discussed with patient/family; questions answered; patient/family understands, accepts and wishes to proceed. KRISH SHIRLEY MD Mar 21, 2018 07:19
--- NOTE | 2018-03-21 07:20 | OPR ---
Date/Time of Note Date/Time of Note DATE: 03/21/18 TIME: 07:16 Operative Report Procedure Date: Mar 21, 2018 Preoperative Diagnosis Left frontal hemorrhagic mass Postoperative Diagnosis 1) Left frontal cystic lesion 2) Left frontal intraparenchymal hemorrhage Operation/Procedure Performed 1) Left frontal craniotomy for resection of mass 2) Neuronavigation Surgeon Dharmesh Huerta MD Gift Shop Assistant none Anesthesia Type: general Estimated Blood Loss: 10 - 50 ml's Transfusion none Specimen Left frontal cystic hemorrhagic mass to pathology Grafts/Implants none Tubes/Drains none Complications none Pt Condition Post Procedure: stable Disposition: other (ICU) Indications Ms. Nair is a 27 year old female with a history of methamphetamine use. She relapsed on Wednesday and experienced 3 seizures that evening. The seizures originated in the R hand region. CT and MR imaging demonstrated a cystic mass of the left frontal lobe concerning for an underlying vascular or neoplastic mass. There was no contrast-enhancement. Her seizures have been controlled on medications, however I advised her as to the risks and benefits of resection for diagnosis and seizure control. She understands the risks and has elected to proceed. Procedure Description Ms. Nair was brought back to the operating room where general endotracheal anesthesia was induced without difficulty. She was placed in the supine position with her head in Driscoll 3-point fixation. The [employer] neuronavigation machine was registered. The area of the lesion was identified using neuronavigation and a small linear incision was prepped and draped in the usual sterile fashion. 10cc of lidocaine with epinephrine were infiltrated into the incision. The incision was made using a #10 blade and bovie electrocautery was used to open the scalp down to the periosteum. A self-retaining retractor was placed and the lesion was once again mapped using neuronavigation. Two marlin holes were made and a craniotome was used to elevate the flap. The dura was then opened in a curvilinear fashion. The intraoperative ultrasound was used to confirm the adequacy of the exposure. A corticotomy was made in the superior frontal gyrus and the hemorrhagic lesion was identified at a depth of 3 mm. There was a thin cyst wall surrounding the hemorrhage. This was entered and subacute hemorrhagic products were expelled. The remainder of the mass and cyst were removed entirely using Frederick instruments and sent to pathology for analysis. Bipolar electrocautery, surgicel, and gelfoam soaked in thrombin were used to achieve hemostasis. The dura was then reapproximated using 4-0 neurolon suture. A piece of gelfoam was placed over this. The craniotomy flap was then replaced using the Rajeev plating system. The wound was washed with copious antibiotic irrigation and closed in layered fashion with inverted interrupted 3-0 vicryl suture for the galea and ramon for the skin. The patient was extubated and transferred to the ICU. All sponge and needle counts were correct at the end of the case. DHARMESH HUERTA MD Mar 21, 2018 07:20
[2018-03-21] MEDS ORDERED: MIDAZOLAM 1 MG/ML 2 ML INJ ONE ×2 (07:25→07:26)
[2018-03-21] MEDS ORDERED: METOCLOPRAMIDE 10 MG INJ ONE (07:26)
[2018-03-21] MEDS ORDERED: LIDOCAINE 2% (SDV) 5 ML INJ ONE (07:26)
[2018-03-21] MEDS ORDERED: ROCURONIUM 50 MG INJ ONE (07:26)
[2018-03-21] MEDS ORDERED: PROPOFOL 40 ML ONE (07:26)
--- NOTE | 2018-03-21 07:28 | NUR ---
RECEIVED REPORT ABOUT THE PT. THE PATIENT IS IN SURGERY AT THIS TIME.
[2018-03-21] MEDS ORDERED: LEVALBUTEROL (NEB) 1.25 MG/0.5 ML AMP HHN PRN (07:30)
[2018-03-21] MEDS ORDERED: hydrALAzine 20 MG INJ IV PRN ×2 (07:30→08:00)
[2018-03-21] MEDS ORDERED: FENTAnyl 50 MCG/ML VIAL IV PRN ×3 (07:30→08:00)
[2018-03-21] MEDS ORDERED: MIDAZOLAM 1 MG/ML 2 ML INJ IV PRN (07:30)
[2018-03-21] MEDS ORDERED: DIPHENHYDRAMINE 50 MG INJ IV PRN (07:30)
[2018-03-21] MEDS ORDERED: HYDROmorphONE 0.5 MG/0.5 ML SYG IV PRN ×3 (07:30)
[2018-03-21] MEDS ORDERED: LABETALOL HCL 20MG INJ IV PRN ×2 (07:30→08:00)
[2018-03-21] MEDS ORDERED: ONDANSETRON 4 MG INJ IV PRN ×2 (07:30→08:00)
[2018-03-21] MEDS ORDERED: IPRATROPIUM (NEB) 0.5 MG/2.5 ML AMP HHN PRN (07:30)
[2018-03-21] MEDS ORDERED: LORAZEPAM 2 MG INJ IV PRN (07:30)
[2018-03-21] MEDS ORDERED: LABETALOL HCL 20MG INJ ONE (08:34)
[2018-03-21] MEDS ORDERED: FENTAnyl 50 MCG/ML VIAL ONE (08:40)
[2018-03-21] MEDS ORDERED: METOPROLOL 5 MG INJ ONE (08:45)
[2018-03-21] MEDS ORDERED: GLYCOPYRROLATE 0.4 MG INJ ONE (09:56)
[2018-03-21] MEDS ORDERED: ALBUMIN HUMAN 25% 200 ML ONE (09:56)
[2018-03-21] MEDS ORDERED: NEOSTIGMINE 3 MG/3 ML SYRINGE ONE (09:57)
[2018-03-21] MEDS ORDERED: BACITRACIN/POLYMYXIN 28.35 GM OINT TOP ONE (10:14)
[2018-03-21] MEDS: LEVETIRACETAM IV 750 MG in DEXTROSE 5% 100 ML IVPB SCH ×2 (11:08→21:00)
[2018-03-21] MEDS: DEXAMETHASONE 4 MG/ML 1 ML INJ IV SCH ×2 (11:52→17:49)
[2018-03-21] MEDS: ONDANSETRON 4 MG INJ IV PRN ×2 (11:57→16:01)
[2018-03-21] MEDS: LORAZEPAM 2 MG INJ IV PRN (13:14)
[2018-03-21] MEDS: CEFAZOLIN 1 GM/50 ML (PMX) 50 ML IVPB SCH ×2 (14:23→21:52)
[2018-03-21] MEDS: ACETAMINOPHEN 325 MG TAB PO PRN (14:29)
--- NOTE | 2018-03-21 14:59 | CONS ---
Assessment/Plan Assessment/Plan Hospital Course A: 27 yo F with hx of methamphetamine abuse who p/w seizures...for which neurology is consulted. MRI brain was most notable for a frontal hemorrhagic lesion... which is the presumed underlying seizure focus Repeat MRI w/ contrast was stable from prior. MRA H/N was unrevealing.. Interval events: 03/21 - Now s/p excisional biopsy F/u CTH is unremarkable. P: Cont Keppra as scheduled for now Ativan IV PRN seizure > 5min or for cluster Maintain SBP <160 Avoid antiplatelets/anticoagulants in the short term Limit sedating medications where possible Other medical management per primary Will follow clinically Result Diagram: 03/21/1842603/21/18426 Results 24hrs Laboratory Tests Test 03/20/18 21:00 03/21/18 04:27 Urine Opiates Screen Negative Urine Barbiturates Negative Urine Amphetamines Screen Negative Urine Benzodiazepines Screen Positive Urine Cocaine Screen Negative Urine Cannabinoids Negative White Blood Count 7.2 Red Blood Count 4.40 Hemoglobin 13.1 Hematocrit 38.6 Mean Corpuscular Volume 87.7 Mean Corpuscular Hemoglobin 29.8 Mean Corpuscular Hemoglobin Concent 33.9 Red Cell Distribution Width 13.0 Platelet Count 337 Mean Platelet Volume 9.0 Immature Granulocytes % 0.300 Neutrophils % 45.3 Lymphocytes % 43.2 Monocytes % 7.7 Eosinophils % 2.9 Basophils % 0.6 Nucleated Red Blood Cells % 0.0 Immature Granulocytes # 0.020 Neutrophils # 3.3 Lymphocytes # 3.1 H Monocytes # 0.6 Eosinophils # 0.2 Basophils # 0.0 Nucleated Red Blood Cells # 0.0 Sodium Level 137 Potassium Level 4.1 Chloride Level 101 Carbon Dioxide Level 27 Anion Gap 9 Blood Urea Nitrogen 16 Creatinine 0.68 Est Glomerular Filtrat Rate mL/min > 60 Glucose Level 94 Calcium Level 9.0 Consultation Date/Type/Reason Admit Date/Time Mar 16, 2018 at 04:57 Type of Consult Neurology Reason for Consultation seizures Requesting Provider: DILLON JAIME Date/Time of Note DATE: 03/21/18 TIME: 14:59 24 HR Interval Summary Free Text/Dictation Transferred to ICU s/p tumor resection. Pt reportedly doing well. Pt states that she's agitated because her mom took her cell phone. Otherwise denies headache, weakness, dizziness, lightheaded, lethargy, confusion. Exam Vital Signs Vitals Vital Signs Date Temp Pulse Resp B/P (MAP) Pulse Ox O2 O2 Flow FiO2 Time Delivery Rate 03/21/18 61 16 97/57 (70) 100 Nasal 2.0 14:00 Cannula 03/21/18 98.2 10:50 Intake and Output 03/20/18 03/20/18 03/21/18 1515:00 23:00 07:00 IntakeIntake Total 430 ml 1107.5 ml BalanceBalance 430 ml 1107.5 ml Exam PE: Gen Appearance: No Apparent Distress HEENT: Normocephalic Cardiovascular: Regular rate Lungs: Clear bilaterally Abdomen: Soft Extremities: Dry NE: The patient was alert and oriented.. Language was normal. Fund of knowledge was normal. Pupils were equal and reactive to light. There was no afferent pupillary defect. Visual blank were normal. Funduscopic examination was limited. Extra-ocular mov ements were full. Ptosis was absent. There was no nystagmus. Facial sensation was normal. Face was symmetric with normal strength. Hearing was intact. Palate movements were normal. Neck strength was normal. There was normal tongue bulk and speed of movement. Tone was normal. Muscle bulk was normal. I did not see fasciculations. Arms and legs were strong. Vibration sensation was normal. Temperature and pinprick sensation was normal. Rapid alternating movements were normal. There was no dysmetria. There was no intention tremor. Gait was normal. Arm and leg reflexes were 2+ and symmetric. Trivedi's sign was absent. Plantar responses were flexor. GABBY WILDER NP Mar 21, 2018 14:59
[2018-03-21] MEDS ORDERED: morphine SULFATE/PF (2 MG/2 ML) SYG IV PRN (15:30)
--- NOTE | 2018-03-21 15:57 | NUR ---
SS NOTE: THIS SW MET WITH PT'S MOTHER IN THE ICU. PER RN REPORT, PT'S MOTHER ATTEMPTED TO HAVE VISITATION RESTRICTIONS. PT IS NOT CONSERVED AND DOES NOT HAVE POA. PT MET WITH SECURITY AND MADE NO VISITATIONS RESTRICTIONS. PT'S MOTHER MS. SAAVEDRA WAS CONCERNED ABOUT PT'S BOYFRIEND VISITING, CONCERNS ABOUT POSSIBLE ABUSE, BRING IN UNAUTHORIZED FOOD, AND DRUGS. SW EXPLAINED TO PT'S MOTHER THAT ONLY THE PT CAN MAKE VISITATIONS RESTRICTIONS, SHE VERBALIZED UNDERSTANDING. PT IS ALERT & ORIENTED. EFFORTS WILL MADE TO HAVE PT'S ROOM IN TELE BE IN THE FRONT OF NURSING STATION, STAFF AND PT'S MOTHER AWARE. PT HAS A LONG DRUG HX, MOTHER IS TRYING TO GET PT IN REHAB BEFORE D/C. THERE IS A CUSTODY HEARING FOR PT'S 1 Y/O TOMORROW, PT'S MOTHER WILL BE PRESENT. PT'S MOTHER CURRENTLY HAS TEMPORARY CUSTODY OF THE CHILD. SW PROVIDED SUPPORT & ENCOURAGEMENT AND WILL FOLLOW UP NEEDED.
[2018-03-21] MEDS: HYDROCODONE/APAP (5/325) TAB PO PRN ×2 (16:02→21:52)
--- NOTE | 2018-03-21 17:04 | PN ---
Date/Time of Note Date/Time of Note DATE: 03/21/18 TIME: 16:55 Assessment/Plan VTE Prophylaxis Risk score (from Ns)>0 risk: 1 SCD applied (from Ns): Yes Pharmacological prophylaxis: NA/contraindicated Pharm contraindication: surgical contra Lines/Catheters IV Catheter Type (from Nrsg): A Line Urinary Cath still in place: Yes Reason Cath still needed: other (indicate) Assessment/Plan Assessment/Plan assessment and plan: 27 yo F who presented wit 1st time seizures managed as follows: 1. acute to subacute left frontal hematoma / lesion - s/p Left frontal craniotomy for resection of mass 03/21/18 -continue ICU post op care per neurosurgery 2. Hypertensive emergency secondary to meth use: Resolved 3. Chronic substance [methamphetamine] abuse 4. New onset seizures secondary to #1: no further seizures, remains on Keppra Plan: -continue postop care -f/u pathology -post op head CT -keep SBP <140mmhg -dexamethasone per neurosx Care time >40mins Result Diagram: 03/21/18 0427 03/21/18 0427 Results 24hrs Laboratory Tests Test 03/20/18 21:00 03/21/18 04:27 Urine Opiates Screen Negative Urine Barbiturates Negative Urine Amphetamines Screen Negative Urine Benzodiazepines Screen Positive Urine Cocaine Screen Negative Urine Cannabinoids Negative White Blood Count 7.2 Red Blood Count 4.40 Hemoglobin 13.1 Hematocrit 38.6 Mean Corpuscular Volume 87.7 Mean Corpuscular Hemoglobin 29.8 Mean Corpuscular Hemoglobin Concent 33.9 Red Cell Distribution Width 13.0 Platelet Count 337 Mean Platelet Volume 9.0 Immature Granulocytes % 0.300 Neutrophils % 45.3 Lymphocytes % 43.2 Monocytes % 7.7 Eosinophils % 2.9 Basophils % 0.6 Nucleated Red Blood Cells % 0.0 Immature Granulocytes # 0.020 Neutrophils # 3.3 Lymphocytes # 3.1 H Monocytes # 0.6 Eosinophils # 0.2 Basophils # 0.0 Nucleated Red Blood Cells # 0.0 Sodium Level 137 Potassium Level 4.1 Chloride Level 101 Carbon Dioxide Level 27 Anion Gap 9 Blood Urea Nitrogen 16 Creatinine 0.68 Est Glomerular Filtrat Rate mL/min > 60 Glucose Level 94 Calcium Level 9.0 Subjective 24 Hr Interval Summary Free Text/Dictation Patient seen and examined. c/o some pain at the central line site, but denies pain at op site or headache Exam/Review of Systems Vital Signs Vitals Vital Signs Date Temp Pulse Resp B/P (MAP) Pulse Ox O2 O2 Flow FiO2 Time Delivery Rate 03/21/18 59 21 92/52 (65) 100 Nasal 2.0 15:00 Cannula 03/21/18 98.2 10:50 Intake and Output 03/20/18 03/20/18 03/21/18 1515:00 23:00 07:00 IntakeIntake Total 430 ml 1107.5 ml BalanceBalance 430 ml 1107.5 ml Exam Constitutional: alert, oriented Head: other Eyes: PERRL Respiratory: clear to auscultation, normal air movement Cardiovascular: regular rate and rhythm; No murmurs/extra sounds Gastrointestinal: soft, non-tender, bowel sounds Extremities: No edema Neurological: nl mental status, nl speech, nl strength, lethargic; No focal weakness Medications Medications Current Medications IV Flush (NS 3 ml) 3 ml PER PROTOCOL IV ; Start 03/16/18 at 06:30 Ondansetron HCl (Zofran Inj) 4 mg Q6H PRN IV NAUSEA AND/OR VOMITING Last administered on 03/21/18at 16:01; Admin Dose 4 MG; Start 03/16/18 at 06:30 Acetaminophen (Tylenol Tab) 650 mg Q6H PRN PO PAIN LEVEL 1-3 OR FEVER Last administered on 03/21/18at 14:29; Admin Dose 650 MG; Start 03/16/18 at 06:30 Levetiracetam 750 mg/Dextrose 107.5 ml @ 430 mls/hr Q12 IVPB Last administered on 03/20/18at 20:39; Admin Dose 430 MLS/HR; Start 03/16/18 at 09:00 Diphenhydramine HCl (Benadryl) 25 mg Q6H PRN PO ITCHING; Start 03/16/18 at 15:00 Lorazepam (Ativan) 2 mg Q2H PRN IV Seizure Last administered on 03/21/18at 1 3:14; Admin Dose 2 MG; Start 03/18/18 at 07:00 Cefazolin Sodium 50 ml @ 100 mls/hr Q8 IVPB Last administered on 03/21/18at 14:23; Admin Dose 100 MLS/HR; Start 03/21/18 at 14:00; Stop 03/22/18 at 06:29 Dexamethasone (Decadron) 4 mg Q6 IV Last administered on 03/21/18at 11:52; Admin Dose 4 MG; Start 03/21/18 at 12:00; Stop 03/23/18 at 06:01 Fentanyl (Sublimaze) 25 mcg Q2H PRN IV SEVERE PAIN LEVEL 7-10; Start 03/21/18 at 08:00 Labetalol HCl (Labetalol) 10 mg Q2H PRN IV ELEVATED SYSTOLIC BP > 140mmHg; Start 03/21/18 at 08:00 Hydralazine HCl (Apresoline) 10 mg Q4H PRN IV ELEVATED SYSTOLIC BP > 140mmHg; Start 03/21/18 at 08:00 Ondansetron HCl (Zofran Inj) 4 mg Q6H PRN IV NAUSEA AND/OR VOMITING; Start 03/21/18 at 08:00 Morphine Sulfate (morphine) 2 mg Q4H PRN IV SEVERE PAIN LEVEL 7-10; Start 03/21/18 at 16:00 Acetaminophen/ Hydrocodone Bitart ([place] (5/325)) 1 tab Q6H PRN PO MODERATE [place] N LEVEL 4-6 Last administered on 03/21/18at 16:02; Admin Dose 1 TAB; Start 03/21/18 at 16:00 DILLON JAIME Mar 21, 2018 17:03
[2018-03-22] VITALS (28 sets, daily range): BP systolic 83–127; BP diastolic 40–81; PULSE 62–87; RESP 15–22
[2018-03-22] MEDS: HYDROCODONE/APAP (5/325) TAB PO PRN ×3 (03:24→14:28)
[2018-03-22] MEDS: CEFAZOLIN 1 GM/50 ML (PMX) 50 ML IVPB SCH (06:51)
[2018-03-22] MEDS: DEXAMETHASONE 4 MG/ML 1 ML INJ IV SCH ×5 (06:51→23:21)
[2018-03-22] MEDS: morphine 4 MG/ML VIAL IV PRN ×2 (08:35→20:37)
--- NOTE | 2018-03-22 09:17 | PN ---
Date/Time of Note Date/Time of Note DATE: 03/22/18 TIME: 09:15 Assessment/Plan VTE Prophylaxis Risk score (from Nsg)>0 risk: 5 Pharmacological prophylaxis: NA/contraindicated Pharm contraindication: hemorrhagic infarct Lines/Catheters IV Catheter Type (from Nrsg): A Line Urinary Cath still in place: Yes Reason Cath still needed: other (indicate) Assessment/Plan Result Diagram: 03/21/1842603/21/18426 Subjective 24 Hr Interval Summary Free Text/Dictation S: doing fairly well post op, a bit cranky with her family but no headaches or nausea or concerning post op symptoms Objective: O:Constitutional: alert, oriented Head: atraumatic, normocephalic Neck: non-tender, supple Respiratory: clear to auscultation Cardiovascular: regular rate and rhythm Gastrointestinal: S/ NT / ND / +BS Extremities: no edema, good radial pulses assessment and plan: 27 yo F who presented wit 1st time seizures managed as follows: 1. acute to subacute left frontal hematoma / lesion - s/p Left frontal craniotomy for resection of mass 03/21/18 -continue ICU post op care per neurosurgery 2. Hypertensive emergency secondary to meth use: Resolved 3. Chronic substance [methamphetamine] abuse 4. New onset seizures secondary to #1: no further seizures, remains on Keppra Plan: -continue postop care, transfer to floor if cleared by neurosurgery -f/u pathology -post op head CT seen, ?routine post op changes -keep SBP <140mmhg -dexamethasone per neurosx Care time >40mins Exam/Review of Systems Vital Signs Vitals Vital Signs Date Temp Pulse Resp B/P (MAP) Pulse Ox O2 O2 Flow FiO2 Time Delivery Rate 03/22/18 65 17 92/51 (65) 98 07:00 03/22/18 98.3 04:00 03/21/18 Room Air 18:00 Nasal Cannula 03/21/18 2.0 17:00 Intake and Output 03/21/18 03/21/18 03/22/18 1515:00 23:00 07:00 IntakeIntake Total 2830 ml 1720 ml 600 ml OutputOutput Total 1150 ml 862 ml 736 ml BalanceBalance 1680 ml 858 ml -136 ml Medications Medications Current Medications IV Flush (NS 3 ml) 3 ml PER PROTOCOL IV ; Start 03/16/18 at 06:30 Ondansetron HCl (Zofran Inj) 4 mg Q6H PRN IV NAUSEA AND/OR VOMITING Last administered on 03/21/18at 16:01; Admin Dose 4 MG; Start 03/16/18 at 06:30 Acetaminophen (Tylenol Tab) 650 mg Q6H PRN PO PAIN LEVEL 1-3 OR FEVER Last administered on 03/21/18at 14:29; Admin Dose 650 MG; Start 03/16/18 at 06:30 Levetiracetam 750 mg/Dextrose 107.5 ml @ 430 mls/hr Q12 IVPB Last administered on 03/21/18at 21:00; Admin Dose 430 MLS/HR; Start 03/16/18 at 09:00 Diphenhydramine HCl (Benadryl) 25 mg Q6H PRN PO ITCHING Last administered on 03/21/18at 22:16; Admin Dose 25 MG; Start 03/16/18 at 15:00 Lorazepam (Ativan) 2 mg Q2H PRN IV Seizure Last administered on 03/21/18at 13:14; Admin Dose 2 MG; Start 03/18/18 at 07:00 Dexamethasone (Decadron) 4 mg Q6 IV Last administered on 03/22/18at 06:51; Admin Dose 4 MG; Start 03/21/18 at 12:00; Stop 03/23/18 at 06:01 Fentanyl (Sublimaze) 25 mcg Q2H PRN IV SEVERE PAIN LEVEL 7-10 Last administered on 03/21/18at 20:31; Admin Dose 25 MCG; Start 03/21/18 at 08:00 Labetalol HCl (Labetalol) 10 mg Q2H PRN IV ELEVATED SYSTOLIC BP > 140mmHg; Start 03/21/18 at 08:00 Hydralazine HCl (Apresoline) 10 mg Q4H PRN IV ELEVATED SYSTOLIC BP > 140mmHg; Start 03/21/18 at 08:00 Ondansetron HCl (Zofran Inj) 4 mg Q6H PRN IV NAUSEA AND/OR VOMITING; Start 03/21/18 at 08:00 Morphine Sulfate (morphine) 2 mg Q4H PRN IV SEVERE PAIN LEVEL 7-10 Last administered on 03/22/18at 08:35; Admin Dose 2 MG; Start 03/21/18 at 16:00 Acetaminophen/ Hydrocodone Bitart ([place] (5/325)) 1 tab Q6H PRN PO MODERATE PAIN LEVEL 4-6 Last administered on 03/22/18at 03:24; Admin Dose 1 TAB; Start 03/21/18 at 16:00 DILLON JAIME Mar 22, 2018 09:17
[2018-03-22] MEDS: LEVETIRACETAM IV 750 MG in DEXTROSE 5% 100 ML IVPB SCH ×2 (10:35→20:35)
--- NOTE | 2018-03-22 11:40 | PN ---
Date/Time of Note Date/Time of Note DATE: 03/22/18 TIME: 11:35 Assessment/Plan Lines/Catheters IV Catheter Type (from Nrs): A Line Nj in Place (from Nrs): Yes Assessment/Plan Assessment/Plan POD1 L frontal craniotomy doing very well. - Transfer to med/surg floor - Ancef to stop today - dex one more day - d/c a-line/nj - Ok to get OOB - d/c IV narcotics - d/c IVF - Possible home tomorrow - D/c central line at discharge Subjective 24 Hr Interval Summary Pt POD1 L frontal crani for resection of hemorrhagic mass Complains of low-level pain. Otherwise smiling, happy, feels well. No weakness or language difficulties. Exam/Review of Systems Vital Signs Vitals Vital Signs Date Temp Pulse Resp B/P (MAP) Pulse Ox O2 O2 Flow FiO2 Time Delivery Rate 03/22/18 84 16 107/67 98 10:30 (80) 03/22/18 Room Air 10:00 03/22/18 98.3 04:00 03/21/18 2.0 17:00 Intake and Output 03/21/18 03/21/18 03/22/18 1515:00 23:00 07:00 IntakeIntake Total 2830 ml 1720 ml 600 ml OutputOutput Total 1150 ml 862 ml 736 ml BalanceBalance 1680 ml 858 ml -136 ml Exam Free Text/Dictation Ox3 CN grossly intact 5/5 no drift Results Free Text/Dictation CT head demonstrates no hemorhage. Likely complete resection Result Diagram: 03/21/18 0427 03/21/18 0427 ANTWON HUERTA MD Mar 22, 2018 11:39
--- NOTE | 2018-03-22 13:20 | NUR ---
PT evaluation Therapy day number 1 Evaluation Start Time 13:20 Evaluation End Time 13:45 Evaluation Total Time 25 min Subjective Current complaint of pain Pain Scale NUMERIC Pain Intensity 6 (0-10) Patient Stated Goal for Pain Relief 0 (0-10) Pain Level Comment Patient willing to continue therapy intervention Pre Treatment Vital Signs Stable Yes Supine to Sit Independent Transfer Sit to Stand Ability Independent Bed Mobility Sit to Supine Independent Bed Transfer Ability Independent Chair Transfer Ability Independent Gait Assist Levels Independent Assistive Devices None Ambulation Distance 300 feet Additional Gait Comments able to change directions and speeds without difficulty, no AD Additional Stairs Assist Comments pt verbalized ability to perform stairs at DC Static Sitting Balance Good Dynamic Sitting Balance Good Standing Static Balance Good Dynamic Standing Balance Good Safety Judgement Good Activity Tolerance Good Equipment Present IV pump Post Treatment Pain Intensity 6 0-10 Additional Post Treatment Comment See note Total Minutes 25 Total Units 2 PT Technical Record Comment 27 yo female presents with seizures found to have a cystic L frontal mass. Now s/p L frontal craniotomy for hemorrhagic mass PMH: methamphetamine abuse, seizures PLOF: patient independent with all mobility, lives in home with stairs to manage S: Patient in bed, agreeable to PT evaluation. Pt cleared for activity per RN. O: PT evaluation completed, pt returned back to bed following therapy intervention with all needs met and family present at bedside. No reports of pain, dizziness, or shortness of breath with activity. Spoke to RN regarding pt response to activity and PT plan of care. A: Patient presents with strong mobility throughout with no observable deficit. Patient able to change directions and speeds without difficulty. No AD required. Pt demonstrates baseline functional mobility and thus does not require skilled inpatient PT at this time P: Discharge physical therapy
--- NOTE | 2018-03-22 15:24 | CONS ---
Assessment/Plan Assessment/Plan Hospital Course A: 27 yo F with hx of methamphetamine abuse who p/w seizures...for which neurology is consulted. MRI brain was most notable for a frontal hemorrhagic lesion... which is the presumed underlying seizure focus Repeat MRI w/ contrast was stable from prior. MRA H/N was unrevealing.. Interval events: 03/21 - Now s/p excisional biopsy F/u CTH is unremarkable. P: Cont Keppra as scheduled for ~1 mo Ativan IV PRN seizure > 5min or for cluster Maintain SBP <160 Avoid antiplatelets/anticoagulants in the short term Limit sedating medications where possible Other medical management per primary Will follow clinically Result Diagram: 03/21/1842603/21/18426 Consultation Date/Type/Reason Admit Date/Time Mar 16, 2018 at 04:57 Type of Consult Neurology Reason for Consultation seizures Requesting Provider: DILLON JAIME Date/Time of Note DATE: 03/22/18 TIME: 15:24 24 HR Interval Summary Free Text/Dictation Continues critical care. Postop day 1. No acute events reported. Pt states that she is doing well today Exam Vital Signs Vitals Vital Signs Date Temp Pulse Resp B/P (MAP) Pulse Ox O2 O2 Flow FiO2 Time Delivery Rate 03/22/18 71 17 119/70 97 Room Air 15:00 (86) 03/22/18 97.8 12:00 03/21/18 2.0 17:00 Intake and Output 03/21/18 03/21/18 03/22/18 1414:59 22:59 06:59 IntakeIntake Total 2590 ml 1460 ml 1100 ml OutputOutput Total 1020 ml 892 ml 836 ml BalanceBalance 1570 ml 568 ml 264 ml Exam PE: Gen Appearance: No Apparent Distress HEENT: Normocephalic Cardiovascular: Regular rate Lungs: Clear bilaterally Abdomen: Soft Extremities: Dry NE: The patient was alert and oriented.. Language was normal. Fund of knowledge was normal. Pupils were equal and reactive to light. There was no afferent pupillary defect. Visual blank were normal. Funduscopic examination was limited. Extra-ocular movements were full. Ptosis was absent. There was no nystagmus. Facial sensation was normal. Face was symmetric with normal strength. Hearing was intact. Palate movements were normal. Neck strength was normal. There was normal tongue bulk and speed of movement. Tone was normal. Muscle bulk was normal. I did not see fasciculations. Arms and legs were strong. Vibration sensation was normal. Temperature and pinprick sensation was normal. Rapid alternating movements were normal. There was no dysmetria. There was no intention tremor. Gait was normal. Arm and leg reflexes were 2+ and symmetric. Trivedi's sign was absent. Plantar responses were flexor. GABBY WILDER NP Mar 22, 2018 15:24
[2018-03-22] MEDS: LORAZEPAM 2 MG INJ IV PRN ×2 (17:27→22:25)
[2018-03-23] VITALS: BP 101/59; PULSE 64; RESP 17
[2018-03-23 00:58] VITALS: BP 112/57; PULSE 73; RESP 18
[2018-03-23] MEDS: morphine 4 MG/ML VIAL IV PRN ×3 (01:26→14:16)
[2018-03-23] MEDS: ACETAMINOPHEN 325 MG TAB PO PRN (01:26)
[2018-03-23] MEDS ORDERED: clonAZEPAM 0.5 MG TAB PO PRN (02:00)
--- NOTE | 2018-03-23 03:19 | NUR ---
Nurse Note: Pt was transfer from ICU at 0040 am. PT is AOX4. Left side head dressing with ramon open to air. According to ICU report dressing came off last night and nurse applied iodine, unable to cover with gauze due to patient hair, incision wound order care will be follow up in morning and it will endorsed to morning nurse. Pt had morphine and Tylenol for pain. Left subclavian triple lumen cath intact. Pt is OOB independently and boyfriend bedside. Addendum: 03/23/18 at 0527 by NANNETTE WEBBER RN END OF SHIT NOTE: SEE PREVIOUS NURSE NOTE. Left head incision with ramon open to air and hospitalist MD Mcneill notified of came off dressing in ICU, no wound order for now.Incision wound care will be follow in morning. Regular diet, tolerating well. Safety precautions maintained, call light within reach, bed lowest position, hourly rounding.
[2018-03-23] MEDS: DEXAMETHASONE 4 MG/ML 1 ML INJ IV SCH (06:54)
[2018-03-23] MEDS: HYDROCODONE/APAP (5/325) TAB PO PRN ×2 (07:03→11:58)
[2018-03-23 07:43] VITALS: BP 106/76; PULSE 63; RESP 20
[2018-03-23] MEDS: LEVETIRACETAM IV 750 MG in DEXTROSE 5% 100 ML IVPB SCH (09:50)
--- NOTE | 2018-03-23 10:38 | PAC ---
Date/Time of Note Date/Time of Note DATE: 03/23/18 TIME: 10:38 Post-Anesthesia Notes Post-Anesthesia Note Last documented vital signs Vital Signs Date Temp Pulse Resp B/P (MAP) Pulse Ox O2 O2 Flow FiO2 Time Delivery Rate 03/23/18 98.9 63 20 106/76 98 Room Air 07:43 (86) 03/21/18 2.0 17:00 Activity: WNL Respiratory function: WNL Cardiovascular function: WNL Mental status: Baseline Pain reasonably controlled: Yes Hydration appropriate: Yes Nausea/Vomiting absent: Yes KRISH SHIRLEY MD Mar 23, 2018 10:38
--- NOTE | 2018-03-23 11:51 | NUR ---
SS NOTE: DRUG REHAB RESOURCES MET WITH PT AT BEDSIDE. PT'S S/O IN BED WITH HER BUT LEFT THE BED DURING INTERVIEW. PT S/P CRANIOTOMY. REPORTED FEELING WELL. YURY DISCUSSED ABOUT INPT DRUG REHAB AFTER PT'S D/C. PT STATED THAT SHE IS WILLING TO GO BUT SHE CAN'T AFFORD IT. STATED THAT SHE IS WILLING TO DO ANYTHING SO THAT SHE CAN HAVE HER SON BACK BUT WANTS DCFS TO PAY FOR IT. PT STATED THAT HER INSURANCE IS BECAUSE SHE WAS GOING TO BE A SURROGATE BUT IT WOULD NOT BE USED TO PAY FOR HER REHAB. STATED THAT SHE HAS MEDI-FATMATA BUT SHE FIRST HAS TO INFORM THE AGENCY THAT SHE CANNOT BE A SURROGATE ANYMORE AND SHE IS WORRIED THAT SHE WOULD HAVE TO PAY THEM BACK. SW CONTACTED [facility] AND SPOKE WITH ANGUS WHO REPORTED THAT PT WOULD NEED TO HAVE MEDI-FATMATA AND SHE CAN APPLY AT HER DPSS OFFICE. SW ALSO CALLED [employer] [facility] AND WAS TOLD THAT THEY CAN ASSIST PT WITH HER INSURANCE ONCE SHE GETS THERE BUT THEY NEED PT TO CALL THEM SO THAT THEY CAN ASSESS HER READINESS. SW INFORMED PT. PT'S MOTHER ALSO PRESENT AT THIS TIME. S/O LEFT THE ROOM. PT'S MOTHER STATED THAT SHE HAS ALSO CONTACTED [employer]. PT STATED THAT SHE CANNOT DO ANYTHING RIGHT NOW UNTIL SHE TELLS THE AGENCY ABOUT NOT BEING ABLE TO FULFILL HER SURROGACY COMMITMENT. SW ALSO ENCOURAGED PT TO F/U WITH DCFS AND GO TO THE PROGRAMS THAT THEY RECOMMEND. PT STATED THAT SHE IS WILLING TO DO THE MINIMUM REQUIRED TO GET HER SON BACK BUT WANTS DCFS TO PAY FOR THE PROGRAMS. YURY ENCOURAGED FOR PT TO F/U WITH DCFS SW TO DISCUSS HER REQUESTS. SW LEFT A LIST OF INPT REHAB FACILITIES FOR PT TO F/U AFTER D/C. DISCUSSED PT'S D/C PLANS. PT AND MOTHER REPORTED THAT PT WILL BE GOING TO STAY WITH HER FRIENDS WHO HAVE A HOUSE AND A NICE YARD FOR PT TO STAY AND RECOVER FROM HER SURGERY. NO OTHER ISSUES PRESENT AT THIS TIME. SW WILL REMAIN AVAILABLE NEEDED.
--- NOTE | 2018-03-23 12:40 | PN ---
Date/Time of Note Date/Time of Note DATE: 03/23/18 TIME: 12:34 Assessment/Plan Lines/Catheters IV Catheter Type (from Nrs): Central Line Jacinto in Place (from Nrs): Yes Assessment/Plan Assessment/Plan 27 year old female s/p resection of L frontal cystic hemorrhagic mass. She is doing very well and has minimal pain. She is fit for discharge today. She may go home on norco/colace as well as keppra (with Neurology follow-up). I will see her for staple removal and follow-up on 03/31. I gave her the following instructions: - No limitations on return to work - could target 2 weeks with gradual increase in activity - Gradually increase activity. No heavy lifting for first 4 weeks after surgery. - Do not soak wound until ramon are removed. May wash hair with baby shampoo. Subjective 24 Hr Interval Summary POD2 Left frontal craniotomy for resection of hemorrhagic cystic mass Patient doing very well, walking/eating with no difficulty. No seizures. Exam/Review of Systems Vital Signs Vitals Vital Signs Date Temp Pulse Resp B/P (MAP) Pulse Ox O2 O2 Flow FiO2 Time Delivery Rate 03/23/18 98.9 63 20 106/76 98 Room Air 07:43 (86) 03/21/18 2.0 17:00 Intake and Output 03/22/18 03/22/18 03/23/18 1515:00 23:00 07:00 IntakeIntake Total 1667.5 ml 1787.5 ml OutputOutput Total 1492 ml BalanceBalance 175.5 ml 1787.5 ml Exam Free Text/Dictation Alert and oriented x3 CN grossly intact 5/5 incision c/d/i Results Free Text/Dictation Pathology - pending outside review at [facility] Result Diagram: 03/21/18 0427 03/21/18 0427 ANTWON HUERTA MD Mar 23, 2018 12:40
--- NOTE | 2018-03-23 13:40 | PDOCDIS ---
Discharge Instructions CONDITION Qquiw4Hv Patient Condition: [id number] Stable HOME CARE INSTRUCTIONS: [id number] Diet Instructions: Hogjh2s Regular Hdhtf9Dg Special Diet: Qulsf8i regular ACTIVITY: Oujto8Rm Activity Restrictions: Qpymm4w Slowly Increase Activity Rest between Activity Avoid heavy lifting Do not Drive Do not operate Machinery Do not operate Power Tool Avoid Heavy Housework Iryjo0Ew Bathing Restrictions: Eofuj0g Shower [id number] Activity Restrictions Zjjpy9w keep incisional area always Comment: clean and dry FOLLOW UP/APPOINTMENTS Follow-up Plan - Followup with neurosurgery Dr. Murphy for staple removal and follow-up on 03/31. - No limitations on return to work - could target 2 weeks with gradual increase in activity - Gradually increase activity. No heavy lifting for first 4 weeks after surgery. - Do not soak wound until ramon are removed. May wash hair with baby shampoo. OTHER ORDERS: Other Orders: Followup with your primary doctor within the next 1-2 weeks. If you don't have one please let someone know, we can give you resources that may help you pick one. You may call Dr Sandro Shen's office. he's accepting new patients Name, Degree: Sandro Shen MD Specialty: Internal Medicine Comments: Office Address: [address] [place] [address] Office Office You may also call your insurance company to assign one to you. Review your medication list with your nurse before leaving and if you need new prescriptions please let your nurse know. I may have made changes to your home medications or given you new prescriptions, please let your primary doctor know as well. Stay compliant with your medications and report any side effects to your PCP or pharmacist. Return to the ER if you have any concerns and cannot reach your doctors or call your insurance company, they usually have a nurse that can help you. DILLON JAIME Mar 23, 2018 13:40
[2018-03-23] MEDS ORDERED: LEVE750T70 PO (13:41)
[2018-03-23] MEDS ORDERED: DOCU-144 PO (13:41)
[2018-03-23] MEDS ORDERED: HYDR-3601 PO (13:41)
--- NOTE | 2018-03-23 14:31 | CONS ---
Assessment/Plan Assessment/Plan Hospital Course A: 27 yo F with hx of methamphetamine abuse who p/w seizures...for which neurology is consulted. MRI brain was most notable for a frontal hemorrhagic lesion... which is the presumed underlying seizure focus Repeat MRI w/ contrast was stable from prior. MRA H/N was unrevealing.. Interval events: 03/21 - Now s/p excisional biopsy F/u CTH is unremarkable. P: Taper off Keppra over the next 3 weeks (750 BID/500 BID/250 BID...off) Ativan IV PRN seizure > 5min or for cluster Maintain SBP <160 Avoid antiplatelets/anticoagulants in the short term Limit sedating medications where possible Other medical management per primary She cannot drive for 6 mo Will follow clinically Result Diagram: 03/21/1842603/21/18426 Consultation Date/Type/Reason Admit Date/Time Mar 16, 2018 at 04:57 Type of Consult Neurology Reason for Consultation seizures Requesting Provider: DILLON JAIME Date/Time of Note DATE: 03/23/18 TIME: 14:31 24 HR Interval Summary Free Text/Dictation Continues medsurg monitoring. No acute events reported. Pt states that she is doing well today. Awaiting discharge. Exam Vital Signs Vitals Vital Signs Date Temp Pulse Resp B/P (MAP) Pulse Ox O2 O2 Flow FiO2 Time Delivery Rate 03/23/18 98.9 63 20 106/76 98 Room Air 07:43 (86) 03/21/18 2.0 17:00 Intake and Output 03/22/18 03/22/18 03/23/18 1515:00 23:00 07:00 IntakeIntake Total 1667.5 ml 1787.5 ml OutputOutput Total 1492 ml BalanceBalance 175.5 ml 1787.5 ml Exam PE: Gen Appearance: No Apparent Distress HEENT: Normocephalic Cardiovascular: Regular rate Lungs: Clear bilaterally Abdomen: Soft Extremities: Dry NE: The patient was alert and oriented.. Language was normal. Fund of knowledge was normal. Pupils were equal and reactive to light. There was no afferent pupillary defect. Visual blank were normal. Funduscopic examination was limited. Extra-ocular movements were full. Ptosis was absent. There was no nystagmus. Facial sensation was normal. Face was symmetric with normal strength. Hearing was intact. Palate movements were normal. Neck strength was normal. There was normal tongue bulk and speed of movement. Tone was normal. Muscle bulk was normal. I did not see fasciculations. Arms and legs were strong. Vibration sensation was normal. Temperature and pinprick sensation was normal. Rapid alternating movements were normal. There was no dysmetria. There was no intention tremor. Gait was normal. Arm and leg reflexes were 2+ and symmetric. Trivedi's sign was absent. Plantar responses were flexor. GABBY WILDER NP Mar 23, 2018 14:31
[2018-03-23] MEDS ORDERED: LEVE250T66 PO (15:59)
--- NOTE | 2018-03-23 16:00 | NUR ---
REMOVED TLC: Removed patient's subclavian TLC central line with blue cath tip intact without difficulty and without acute bleeding for the site. Pressure applied to site x 10 minutes with family at bedside and Shayna ROY. Pressure gauze dressing, tape and waterproof tegaderm dressing placed on site. No oozing nor sign of infection noted to site upon removal of TLC. Informed patient of the importance of keeping dressing in place to promote clotting and pressure and to ensure that there will be no bleeding. Patient very impulsive and hyper, wants "to just want to get back on my feet and do the same stuff I did before all this". Patient made to understand about importance of staying away from illicit drugs to prevent future unsafe complications like falls and seizures. Patient instructed to stay in bed for now until discharge to allow the site to clot. Patient noncompliant. Shown blue TLC cath tip to Shayna ROY, prior to disposal of line.
--- NOTE | 2018-03-23 16:15 | NUR ---
DISCHARGE NOTE: Pt stable for discharge, cleared by neurosurgery, neuro, and hospitalist. Central line removed by MANUELA Gilmore with pressure dressing placed. Discharge information given to pt, verbalized understanding. Prescriptions placed in folder, Keppra e-prescribed to pharmacy. Pt refused wheelchair, walked down to front lobby with significant other and Jenaro SUAREZ.
[2018-03-23] MEDS ORDERED: LEVETIRACETAM 750 MG TAB PO SCH (21:00)
--- NOTE | 2018-03-31 14:31 | DS ---
DATE OF ADMISSION: 03/16/2018 DATE OF DISCHARGE: 03/23/2018 ADMISSION COMPLAINT: New onset seizures. FINAL DIAGNOSES: 1. Acute, subacute left frontal hematoma status post lesion, status post left frontal craniotomy for mass resection 03/21/2018. 2. Hypertensive emergency secondary to menses, resolved. 3. Chronic substance methamphetamine abuse, status post counseling for cessation and resources provided. 4. New onset seizures secondary to #1. 5. No further seizures now, wants Keppra taper. CONSULTS ON THE CASE: Dr. Murphy for neurosurgery, Dr. Radha Cantu for neurology. INTERVENTIONS: The patient underwent operative intervention 03/21/2018 where she had a left frontal craniotomy for mass resection and neuronavigation. DISPOSITION: To home with family without need for physical therapy. Imaging studies were multiple and included MRI of the brain with and without contrast as well as MRA of the brain and neck that was negative for any aneurysmal dilatations or any obstructions. Pathology from brain tumor is still pending and the patient to follow up with neurosurgery as outpatient for pathology report. SHORT HOSPITALIZATION COURSE: Patient was brought in for 1st time seizures. The situation around the seizure is unclear, but apparently she had been using methamphetamine and blood pressure was very high on arrival. She was initially diagnosed with a frontal hematoma 2/2 meth use and was admitted to the intensive care unit after which she was seen by neurosurgery. Neurosurgery felt that this was more than a hematoma with a probable underlying cyst versus lesion . She underwent surgical resection. Postoperatively, she did very well and was discharged day 2 postop without complications. For further details, please review the patient's chart. DISCHARGE CONDITION: Stable. ACTIVITY: As tolerated. FOLLOWUP: Per hospital course. For a complete list of discharge medications, please review the patient's chart. Total time spent on discharge coordination was more than 40 minutes. Dictated By: DILLON JAIME MD BA/NTS Conf#: [id number] DID#: [id number] CC: SHELLEY HARRINGTON MD;*EndCC* MTDD
== END 2018-03-23 16:15 | disposition home or self-care (01) | DRG 24 ==
LOC: E/R 04:52 → ICU 04:57 → EDBEDREQSVC 12:24 → MS1 03-17 23:52 → ICU 03-21 10:37 → MS1 03-23 00:56
PROVIDERS: ADMIT Internal Medicine; ATTEND Family Medicine
PROC: 8E09XBZ Computer Assisted Procedure of Head and Neck Region (ICD-10-PCS; 2018-03-21)
PROC: 00B00ZZ Excision of Brain, Open Approach (ICD-10-PCS; principal; 2018-03-21 07:30)
DX: I61.8 Other nontraumatic intracerebral hemorrhage (principal); I16.1 Hypertensive emergency; G40.909 Epilepsy, unspecified, not intractable, without status epilepticus; I61.9 Nontraumatic intracerebral hemorrhage, unspecified; E87.6 Hypokalemia; F15.188 Other stimulant abuse with other stimulant-induced disorder
CPT/HCPCS: 70450; 70544; 70549; 70551; 70553; 80048; 80053; 80061; 80307; 83036; 84443; 84703; 85025; 85610; 85730; 86592; 86803; 86850; 86900; 86901; 87081; 87340; 88305; 88307; 97161; C1713; J0690; J1100; J1170; J1953; J2060; J2250; J2270; J2405; J2710; J2765; J3010; J3480; J7042; P9047

== ENCOUNTER 2018-03-25 19:26 | Emergency (ER) | payer BC, OTHER ==
[~2018-03-25] VITALS: Ht 177.8 cm; Wt 75.9 kg
[~2018-03-25 19:26] MED LIST changes: +CLON-379 PO; +CLON0.5T14 PO; +DOCU-144 PO; +HYDR-3601 PO; +LEVE250T66 PO; +LEVE750T70 PO
[2018-03-25 19:37] VITALS: Ht 177.8 cm; Wt 75.9 kg
--- NOTE | 2018-03-25 21:43 | ERD ---
ER Documentation Chief Complaint Chief Complaint BIB parents for drug use, SI HPI 27-year-old female with recent brain surgery secondary to brain tumor and polysubstance abuse. The patient was recently discharged. The patient is scheduled to be admitted to [facility] in the next several days. Tonight the patient was agitated and states that she wanted to leave her parents home to go use methamphetamine. Her surgeon has told her that if she uses she may have intracranial hemorrhage and . She states understanding. At this point she denies suicidal ideation however her mother has showed me a text message from the patient earlier today stating that she was suicidal. The p atient admits to sending this but states that she was upset at the time. ROS All systems reviewed and are negative except as per history of present illness. Medications Home Meds Active Scripts Levetiracetam* (Keppra*) 250 Mg Tab, 250 MG PO BID, #63 TAB take 3 tabs twice daily till 03/30/18 take 2 tabs twice daily till 04/06/18 take 1 tab twice daily till completed Prov:DILLON JAIME. 03/23/18 Docusate Sodium* (Colace*) 100 Mg Capsule, 200 MG PO DAILY, #14 CAP Prov:DILLON JAIME. 03/23/18 Hydrocodone Bit-Acetaminophen (Hydrocodone Bit-APAP) 5-325MG Tablet, 1 TAB PO Q6H PRN for PAIN, #10 TAB Prov:DILLON JAIME. 03/23/18 Reported Medications Clonazepam* (Clonazepam*) 0.5 Mg Tablet, 0.5 MG PO DAILY PRN for ANXIETY, TAB 03/16/18 Clonidine Hcl* (Clonidine Hcl*) 0.1 Mg Tab, 0.1 MG PO DAILY PRN for ELEVATED BLOOD PRESSURE, TAB 03/16/18 Allergies Allergies: Coded Allergies: No Known Allergy (Unverified , 03/25/18) PMhx/Soc History of Surgery: Yes (brain tumor removal 03/21/18) Anesthesia Reaction: No Hx Neurological Disorder: Yes (Left frontal hemorrhagic mass) Hx Respiratory Disorders: No Hx Cardiac Disorders: No Hx Psychiatric Problems: No Hx Miscellaneous Medical Probl: Yes (See note) Hx Alcohol Use: Yes (unk last drink) Hx Substance Use: Yes (Meth. ) Hx Tobacco Use: Yes (socially) Smoking Status: Light tobacco smoker FmHx Family History: No diabetes Physical Exam Vitals Vital Signs Date Temp Pulse Resp B/P (MAP) Pulse Ox O2 O2 Flow FiO2 Time Delivery Rate 03/25/18 98.9 100 18 119/73 98 19:37 (88) Physical Exam General: Well developed, well nourished, no acute distress Head: Normocephalic, atraumatic. Eyes: EOM intact ENT: Moist mucous membranes Neck: Full ROM Respiratory: No respiratory distress Cardiovascular: Well perfused distally Abdominal: Nondistended : Deferred MSK: No edema, no unilateral swelling, 5/5 strength Neurologic: Alert and oriented, moving all extremities, normal speech, steady gait Skin: No rash, surgical wound is well-appearing with ramon intact Psych: Moderate insight, somewhat manipulative, denies SI or HI Procedures/MDM EKG/DIAGNOSTIC IMAGING: [None Required] LAB INTERPRETATION: Patient refused MEDICAL DECISION MAKING: The patient reports that she is not suicidal. Her mother has showed me a text message that is from the patient stating that she is suicidal. The patient admits to sending a text message but states that she was upset at the time. She no longer feels this way. She states that she wants to leave the emergency room to use substances. The patient understands the risks of these use including intracranial hemorrhage and . She has capacity at this time. She states that she is not intentionally trying to kill herself. Patient admits to having a substance abuse issue and problem. She states that she is looking forward to the future she has a child and wants to go to rehab in several days. I have a much lower clinical concern for delirium or acute organic pathology such as toxicologic, metabolic, ischemic, intracranial hemorrhage, infectious process. However, we must rule this out prior to relying a diagnosis of underlying psychiatric illness. The patient's workup will include medical screening examination and appropriate laboratory testing. If the patient's medical examination does not reveal acute organic pathology the patient will be medically cleared for psychiatric evaluation. ER COURSE: The patient is refusing laboratory testing. She has no signs or symptoms concerning for Location related to recent surgery. The patient is medically cleared for psychiatric evaluation. In my opinion the patient is quite manipulative but does not appear to have an active suicidal ideation. Despite the patient's text message the patient is able to provide a linear thought process. The patient has agreed to telemetry medicine psychiatry evaluation but at this point I believe she does have capacity. CONSULTATION: Psychiatric consultation: Telemetry medicine psychiatry has been consulted on this case to evaluate the patient for possible acute psychiatric illness that would require inpatient hospitalization. RECS Recommendation/Plan Multiple antipsychotics: No Discharge Disposition: Community (home) Legal Status: Voluntary Other She admitted to sending a text message stating she was suicidal, but she has no past suicide attempts. She presented as future oriented and fully intending to go into drug treatment on Wednesday. She stated has a child and loves life and fully wants to be sober. She showed no signs of psychosis and had a very bright affect on exam and did not appear depressed. She understands the risks of using methamphetamine after her surgery and hopes she does not have any side effects but feels strongly she needs to "get loaded" one more time before going into treatment. While this is not an ideal choice it does not appear to represent a suicidal intention but rather her strong craving to use before entering a setting where using will not be possible. Overall she does not appear at high imminent suicide risk. DISPOSITION PLAN: The patient does not wish to see her mother. The patient will be discharged from the emergency room based on recommendations above. Departure Diagnosis: Primary Impression: Polysubstance (excluding opioids) dependence Additional Impressions: Methamphetamine abuse Suicidal ideation Condition: CHANDNI Rodrigues MD Mar 25, 2018 21:43
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
[2018-03-25 23:01] VITALS: BP 116/68; PULSE 77; RESP 20
== END 2018-03-25 23:01 | disposition home or self-care (01) ==
LOC: E/R 19:26
DX: F19.20 Other psychoactive substance dependence, uncomplicated (principal); F15.10 Other stimulant abuse, uncomplicated; Z87.891 Personal history of nicotine dependence
CPT/HCPCS: 99285

== ENCOUNTER 2018-06-08 23:15 | Emergency (ER) | payer BC, OTHER ==
[~2018-06-08] VITALS: Ht 167.6 cm; Wt 74.9 kg
[~2018-06-08 23:15] MED LIST changes: -CYCL10TA7 PO; -IBUP-1561 PO; -LEVE750T70 PO
[2018-06-08 23:20] VITALS: BP 132/82; PULSE 100; RESP 20; Ht 167.6 cm; Wt 74.9 kg
== END 2018-06-09 02:55 | disposition left against medical advice (07) ==
LOC: E/R 23:15
DX: Z53.21 Procedure and treatment not carried out due to patient leaving prior to being seen by health care provider (principal)